=== PATIENT | female | born 1945 | race Caucasian/White ===

== ENCOUNTER 2018-11-29 05:44 | Day surgery (SDC) | payer MEDICARE, OTHER ==
[2018-11-29] MEDS ORDERED: Lactated Ringers 1,000 ML IV ONE (06:13)
[2018-11-29] MEDS ORDERED: Lactated Ringers 1,000 ML IV SCH (06:30)
[2018-11-29] MEDS ORDERED: DIPRIVAN 200 MG/20 ML IV ONE ×2 (07:19→07:51)
[2018-11-29 08:20] VITALS: O2SAT 97
--- NOTE | 2018-11-29 08:45 | OP ---
SURGERY DATE/TIME: 11/29/2018 0737 PREOPERATIVE DIAGNOSIS: History of colon polyps. POSTOPERATIVE DIAGNOSIS: Normal colon. PROCEDURE: Colonoscopy. SURGEON: Ernie Connelly M.D. ANESTHESIA: MAC by Casey Red CRNA. ESTIMATED BLOOD LOSS: None. SPECIMENS: None. DESCRIPTION OF PROCEDURE: After informed written consent was obtained, the patient was taken to the endoscopy suite. She underwent monitored anesthesia and a digital rectal exam showed normal sphincter tone and no internal lesions. The scope was inserted into the rectum and sequentially the entire colonic mucosa was traversed. The level of cecum was reached and verified with direct visualization of ileocecal valve. Upon withdrawal careful mucosal inspection revealed no obvious abnormalities or lesions. Prior to withdrawal retroflexion was performed and showed no internal lesions. The scope was removed and the patient was taken to the recovery room in good condition.
[2018-11-29 08:53] VITALS: BP 156/71; PULSE 78
== END 2018-11-29 08:50 | disposition home or self-care (01) ==
LOC: SDC 05:44
PROVIDERS: ATTEND Family Medicine
DX: Z09 Encounter for follow-up examination after completed treatment for conditions other than malignant neoplasm (principal); Z86.010 Personal history of colon polyps; Z80.0 Family history of malignant neoplasm of digestive organs; E11.9 Type 2 diabetes mellitus without complications; I10 Essential (primary) hypertension
CPT/HCPCS: 82962; 99100; J2704

== ENCOUNTER 2019-12-31 09:31 | Emergency (ER) | payer MEDICARE, OTHER ==
--- NOTE | 2019-12-31 10:04 | HP ---
DATE OF SURGERY: 12/31/2019 HISTORY OF PRESENT ILLNESS: The patient is a 74 year old with abnormal weight loss, thickening of the colon on CT scan. She had endoscopy by Dr. Connelly in the past where she had thickening of the transverse colon on CT now. Due to her abnormal weight, some epigastric pain xiphoid area a few months ago. No bloody stools. Loose stools now. Family history of father with colon cancer. No history of inflammatory bowel disease. Given abnormal thickening of colon on CT scan, she is need of follow up colonoscopy for further evaluation. PAST MEDICAL HISTORY: Hyperlipidemia. Diabetes. Arthritis. Anxiety. Depression. Hypertension. PAST SURGICAL HISTORY: Prior endoscopy in the past. Tonsillectomy. Hemorrhoidectomy. Partial hysterectomy. Cataract surgery. Colonoscopy in the past. MEDICATIONS: Atorvastatin. Actoplus Met. Meloxicam. Paroxetine. Montelukast. Benazepril. Cyanocobalamin. Aspirin. Tylenol PRN. ALLERGIES: PENICILLILN. CODEINE. FAMILY HISTORY: Colon cancer, heart disease, diabetes, lung cancer. SOCIAL HISTORY: Former smoker used to smoke a pack and a half per day but denied smoking currently or alcohol abuse. REVIEW OF SYSTEMS: Fourteen systems reviewed. No chest pain or palpitations. She did lose 28 to 30 pounds in the past few months. Other systems negative or noncontributory as above and per preadmission questionnaire. PHYSICAL EXAMINATION: GENERAL: No acute distress. HEENT: Sclerae nonicteric. NECK: No JVD. CHEST: Equal excursion, nonlabored breathing. CVS: Regular rate and rhythm. ABDOMEN: Soft. No peritoneal signs. EXTREMITIES: No significant edema. NEURO: Alert, oriented, moving extremities symmetrically. No gross motor deficits noted. RECTAL: Deferred timed to endoscopy exam. PSYCH: Appropriate mood and affect. IMPRESSION: Thickened transverse colon on CT scan as well as weight loss of 28 to 30 pounds, she is in need of follow up colonoscopy for further evaluation. Risks and benefits explained in detail including but not limited to bleeding or infection, small risk of bowel injury or perforation possibly requiring open procedure, risk of missed or nondiagnosis or incomplete exam possibly requiring barium enema, other studies or procedures, general risk of anesthesia or sedation, risk of bowel prep but not limited to, consent obtained, will proceed with outpatient colonoscopy under MAC anesthesia.
[2019-12-31 10:42] LABS: Absolute Neutrophil Ct (ANC) 5.09 (1.4-6.9); BASOPHIL % 0.1 % (0.0-0.4); Basophil (Absolute #) 0.01 (0-0.4); Eosinophil % 0.7 % (0.00-5.0); Eosinophil (Absolute #) 0.05 (0-0.5); Hematocrit 36.2 % (35-47); Hemoglobin 11.6 gm/dl (12.0-16.0); Lymphocyte (Absolute #) 1.25 (1.0-4.6); Lymphocytes % 17.1 % (24.0-44.0); Mean Corpuscular Hemoglobin 29.1 pg (26-32); Mean Platelet Volume 10.5 fl (7.5-11.0); Monocyte (Absolute #) 0.89 (0.0-1.3); Monocytes % 12.2 % (0.0-12.0); Neutrophil % 69.9 % (36.0-66.0); Platelet Count 360 K/mm3 (150-450); Red Blood Count 3.98 M/mm3 (4.1-5.4); Red Cell Distribution Width 14.7 % (11.5-14.0); White Blood Count 7.3 K/mm3 (4.0-10.5)
--- NOTE | 2019-12-31 10:43 | ERPHSYRPT ---
- History of Present Illness Source: patient, other () Patient Subjective Stated Complaint: pt to ER with complaints of fall this morning. pt states she was in the bathroom and passed out. pt found pt on the floor of the bathroom unconcious. pt states she has a headache. pt states she had liquids yesterday for a colonoscopy she had scheduled this morning. Triage Nursing Assessment: pt A&Ox4. pt in wheelchair. pt eyes PERRL. pt skin pwd. Physician History: 74 yo wf prepping for colonoscopy the last couple of days presents to ER after having syncopal episode in her bathroom 90 minutes before ER arrival. Pt had a little nausea before fall but denies vomiting/chest pain/focal weakness/fever. She hit her head and has a PARKER. Witnessed: unwitnessed Prior Episodes: single episode today Timing/Duration: other (90minutes) Precipitating Factors: unknown (Pt prepping for a colonoscopy last couple of days) Loss of Consciousness: brief (seconds) Charcter of event(s): collapsed Allergies/Adverse Reactions: Penicillins Allergy (Intermediate, Verified 12/31/19 09:51) b/p drops codeine Allergy (Mild, Verified 12/31/19 09:51) stomach upset Home Medications: Acetaminophen/Diphenhydramine [Tylenol Pm Ex-Strength Caplet] 1 each PO HS 11/14/18 [History] Atorvastatin Calcium [Lipitor] 40 mg PO DAILY 11/14/18 [History] Benazepril/Hydrochlorothiazide [Benazepril-Hctz 20-12.5 mg Tab] 1 each PO DAILY 11/14/18 [History] Cyanocobalamin (Vitamin B-12) [Neuro B-12 Forte S] 1,000 mcg IJ UD 11/14/18 [History] Meloxicam [Mobic] 15 mg PO DAILY 11/14/18 [History] Montelukast Sodium 10 mg [Singulair 10 MG] 10 mg PO DAILY 11/14/18 [History] Paroxetine HCl 20 mg [Paxil 20 MG] 20 mg PO DAILY 11/14/18 [History] Pioglitazone HCl/Metformin HCl [Actoplus Met 15 mg-850 mg Tab] 1 each PO BID 11/14/18 [History] Vitamin E 400 Units [Vitamin E 400 UNIT SOFTGEL] 400 unit PO DAILY 11/14/18 [History] Aspirin EC 81 mg [Ecotrin 81 mg] 81 mg PO DAILY 12/20/19 [History] Hx Tetanus, Diphtheria Vaccination/Date Given: Yes Hx Influenza Vaccination/Date Given: Yes Hx Pneumococcal Vaccination/Date Given: Yes Immunizations Up to Date: Yes Travel Risk - International Travel Have you traveled outside of the country in past 3 weeks: No - Coronavirus Screening Are you exhibiting any of the following symptoms?: No Close contact with a COVID-19 positive Pt in past 14-21 Days: No - Past Medical History Pertinent Past Medical History: Yes Neurological History: No Pertinent History ENT History: Glaucoma Cardiac History: Hypertension Respiratory History: Emphysema, Sleep Apnea Endocrine Medical History: Diabetes Type II Musculoskeletal History: No Pertinent History GI Medical History: GERD, Other History: No Pertinent History Psycho-Social History: No Pertinent History Female Reproductive Disorders: No Pertinent History Other Medical History: hiatal hernia. anemia - Past Surgical History Past Surgical History: Yes Neuro Surgical History: No Pertinent History Cardiac: No Pertinent History Respiratory: No Pertinent History Gastrointestinal: No Pertinent History, Hemorrhoidectomy Genitourinary: No Pertinent History Musculoskeletal: No Pertinent History Female Surgical History: Hysterectomy, Tubal Ligation, Other Other Surgical History: breast surgery left. partial hysterectomy. EYE STENTS - Social History Smoking Status: Former smoker Exposure to second hand smoke: No Drug Use: none Patient Lives Alone: No - Female History Hx Now: No - Review of Systems Constitutional: No Fever, No Chills, No Fatigue, No Lethargy, No Malaise, No Night Sweats, No Weakness, No Weight Loss Eyes: No Discharge, No Eye Pain, No Eye Redness, No Itchy, No Photophobia, No Tearing, No Vision Changes, No Double Vision, No Foreign Body Sensation Ears, Nose, & Throat: No Ear Pain, No Ear Discharge, No Hearing Changes, No Tinnitus, No Nose Pain, No Nose Congestion, No Nose Discharge, No Sinus Drainage, No Epistaxis, No Mouth Pain, No Mouth Swelling, No Loose Teeth, No Throat Pain, No Throat Swelling, No Hoarse, No Painful Swallowing Respiratory: No Cough, No Cyanosis, No Dyspnea, No Dyspnea on Exertion (LEONARDO), No Stridor, No Wheezing Cardiac: No Chest Pain, No Edema, No Palpitations, No Syncope, No Orthopnea Abdominal/Gastrointestinal: Nausea, Appetite Changes (Recent weight loss), No Abdominal Pain, No Vomiting, No Diarrhea, No Constipation, No Hematemesis, No Hematochezia, No Melena, No Dysphagia Genitourinary Symptoms: No Symptoms, No Dysuria, No Frequency, No Hematuria Musculoskeletal: No Symptoms, Neck Pain Skin: No Symptoms Neurological: No Symptoms Psychological: No Symptoms Endocrine: No Symptoms Hematologic/Lymphatic: No Symptoms Immunological/Allergic: No Symptoms Physical Exam - Nursing Vital Signs Nursing Vital Signs: Initial Vital Signs Temperature 97.5 F 12/31/19 09:43 Pulse Rate 87 12/31/19 09:43 Respiratory Rate 16 12/31/19 09:43 Blood Pressure 139/7 12/31/19 09:43 O2 Sat by Pulse Oximetry 100 12/31/19 09:43 Pain Scale Pain Intensity 0 - [place] Coma Scale Best Eye Response (Maria E): (4) open spontaneously Best Verbal Response (Maria E): (5) oriented Best Motor Response ([place]): (6) obeys commands [place] Total: 15 - Physical Exam General Appearance: no apparent distress Eye Exam: bilateral eye: normal inspection, PERRL, EOMI Ears, Nose, Throat Exam: normal ENT inspection, TMs normal, pharynx normal Neck Exam: normal inspection (Mild superior C-spine TTP) Respiratory: normal breath sounds, lungs clear, airway intact, No respiratory distress Cardiovascular: regular rate/rhythm, normal heart sounds, normal peripheral pulses Gastrointestinal: soft, normal bowel sounds, No tenderness Pelvic Exam: not done Back Exam: normal inspection, normal range of motion (No T/L-spine ttp) Extremity Exam: normal inspection, normal range of motion, pelvis stable Peripheral Pulses: carotid (R): 2+, carotid (L): 2+ Mental Status: alert, oriented x 3, cooperative, No agitated ship fastener Exam: normal hearing, normal speech, PERRL, No abnormal eye position, No abnormal gag reflex, No abnormal pupil position, No tongue deviation to R, No tongue deviation to L Coordination/Gait: normal finger to nose, normal cerebellar function Motor/Sensory: no motor deficit, no sensory deficit, no pronator drift, negative Babinski's sign DTR: bicep (R): 2+, bicep (L): 2+, knee (R): 2+, knee (L): 2+ Skin Exam: normal color, warm, dry SpO2 Interpretation: normal SpO2: 100 O2 Delivery: Room Air - Course Nursing assessment & vital signs reviewed: Yes EKG Interpreted by Me: RATE (NSR/R81/Normal Qt-Qtc/Poor R wave progression/Qwave 3-AVF) - CT Exams Head CT Interpretation: Discussed w/radiologist (Nothing acute) Cervical Spine CT Interpretation: Discussed w/radiologist (Nothing acute) Chest CT Interpretation: Discussed w/radiologist (No PE) Ordered Tests: Active Orders 24 hr Category Date Time Status EKG-ER Only STAT Care 12/31/19 10:04 Active IV Insertion STAT Care 12/31/19 10:04 Active CERVICAL SPINE WO CONTRAST [CT] Stat Exams 12/31/19 10:06 Completed CHEST WITH CONTRAST [CT] Stat Exams 12/31/19 13:49 Completed HEAD WITHOUT CONTRAST [CT] Stat Exams 12/31/19 10:06 Completed BMP Stat Lab 12/31/19 12:59 Completed CBC W DIFF Stat Lab 12/31/19 10:04 Completed CMP Stat Lab 12/31/19 10:31 Completed D-DIMER QUANTITATIVE Stat Lab 12/31/19 10:31 Completed PROTIME WITH INR Stat Lab 12/31/19 10:31 Completed PTT Stat Lab 12/31/19 10:31 Completed TROPONIN Q3H Lab 12/31/19 10:31 Completed TROPONIN Q3H Lab 12/31/19 13:15 Completed Medication Summary Generic Name Dose Route Start Last Admin Trade Name Freq PRN Reason Stop Dose Admin Lactated Ringer's 1,000 mls @ 50 mls/hr 12/31/19 15:30 Lactated Ringers IV 01/30/20 15:29 .Q20H BILLY Discontinued Medications Generic Name Dose Route Start Last Admin Trade Name Freq PRN Reason Stop Dose Admin Sodium Chloride 1,000 mls @ 999 mls/hr 12/31/19 10:58 12/31/19 12:03 Sodium Chloride 0.9% 1000 Ml IV 12/31/19 11:58 Infused .Q1H1M STA Infusion Sodium Chloride Confirm 12/31/19 11:00 Sodium Chloride 0.9% 1000 Ml Administered 12/31/19 11:01 Dose 1,000 mls @ ud .ROUTE .STK-MED ONE Sodium Chloride 1,000 mls @ 999 mls/hr 12/31/19 12:02 12/31/19 13:10 Sodium Chloride 0.9% 1000 Ml IV 12/31/19 13:02 Infused .Q1H1M STA Infusion Sodium Chloride Confirm 12/31/19 12:05 Sodium Chloride 0.9% 1000 Ml Administered 12/31/19 12:06 Dose 1,000 mls @ ud .ROUTE .STK-MED ONE Lactated Ringer's 1,000 mls @ 50 mls/hr 12/31/19 15:30 Lactated Ringers IV 01/30/20 15:29 .Q20H [facility] Lab/Rad Data: Laboratory Result Diagrams 12/31/19 10:04 12/31/19 12:59 Laboratory Results 12/31/19 12/31/19 12/31/19 Range/Units 13:15 12:59 10:31 WBC (4.0-10.5) K/mm3 RBC (4.1-5.4) M/mm3 Hgb (12.0-16.0) gm/dl Hct (35-47) % MCV (78-100) fl MCH (26-32) pg MCHC (32-36) g/dl RDW (11.5-14.0) % Plt Count (150-450) K/mm3 MPV (7.5-11.0) fl Gran % (36.0-66.0) % Eos # (Auto) (0-0.5) Absolute Lymphs (auto) (1.0-4.6) Absolute Monos (auto) (0.0-1.3) Lymphocytes % (24.0-44.0) % Monocytes % (0.0-12.0) % Eosinophils % (0.00-5.0) % Basophils % (0.0-0.4) % Absolute Granulocytes (1.4-6.9) Basophils # (0-0.4) PT (9.95-12.35) SECONDS INR (0.8-3.0) APTT (25.3-37.0) SECONDS D-Dimer (215-500) ng/mL Sodium 137 (137-145) mmol/L Potassium 3.9 D (3.5-5.1) mmol/L Chloride 107 (98-107) mmol/L Carbon Dioxide 22 (22-30) mmol/L Anion Gap 11.9 (5-15) MEQ/L BUN 14 (7-17) mg/dL Creatinine 1.12 H (0.52-1.04) mg/dL Estimated GFR 50.8 ML/MIN Glucose 90 (74-106) mg/dL Calcium 8.7 (8.4-10.2) mg/dL Total Bilirubin (0.2-1.3) mg/dL AST (14-36) U/L ALT (0-35) U/L Alkaline Phosphatase (38-126) U/L Troponin I < 0.012 < 0.012 (0.000-0.034) ng/mL Serum Total Protein (6.3-8.2) g/dL Albumin (3.5-5.0) g/dL 12/31/19 12/31/19 12/31/19 Range/Units 10:31 10:31 10:04 WBC 7.3 (4.0-10.5) K/mm3 RBC 3.98 L (4.1-5.4) M/mm3 Hgb 11.6 L (12.0-16.0) gm/dl Hct 36.2 (35-47) % MCV 91.0 (78-100) fl MCH 29.1 (26-32) pg MCHC 32.0 (32-36) g/dl RDW 14.7 H (11.5-14.0) % Plt Count 360 (150-450) K/mm3 MPV 10.5 (7.5-11.0) fl Gran % 69.9 H (36.0-66.0) % Eos # (Auto) 0.05 (0-0.5) Absolute Lymphs (auto) 1.25 (1.0-4.6) Absolute Monos (auto) 0.89 (0.0-1.3) Lymphocytes % 17.1 L (24.0-44.0) % Monocytes % 12.2 H (0.0-12.0) % Eosinophils % 0.7 (0.00-5.0) % Basophils % 0.1 (0.0-0.4) % Absolute Granulocytes 5.09 (1.4-6.9) Basophils # 0.01 (0-0.4) PT 12.3 (9.95-12.35) SECONDS INR 1.09 (0.8-3.0) APTT 32.2 (25.3-37.0) SECONDS D-Dimer 2643 H* (215-500) ng/mL Sodium 135 L (137-145) mmol/L Potassium 3.1 L (3.5-5.1) mmol/L Chloride 100 (98-107) mmol/L Carbon Dioxide 21 L (22-30) mmol/L Anion Gap 16.9 H (5-15) MEQ/L BUN 16 (7-17) mg/dL Creatinine 1.30 H (0.52-1.04) mg/dL Estimated GFR 42.8 ML/MIN Glucose 126 H (74-106) mg/dL Calcium 10.2 (8.4-10.2) mg/dL Total Bilirubin 0.90 (0.2-1.3) mg/dL AST 29 (14-36) U/L ALT 19 (0-35) U/L Alkaline Phosphatase 115 (38-126) U/L Troponin I (0.000-0.034) ng/mL Serum Total Protein 8.1 (6.3-8.2) g/dL Albumin 4.5 (3.5-5.0) g/dL - Progress Progress: unchanged Progress Note: 12/31/19 15:05 Pt stable throughout stay. Received 2L NS bolus. No chest pain/focal weakness/dyspnea throughout stay. Counseled pt/family regarding: lab results, need for follow-up, rad results - Departure Departure Disposition: Home Clinical Impression: Syncope and collapse Condition: Stable Critical Care Time: No Referrals: VIVIEN MARSHALL MD [Primary Care Provider] - Instructions: Syncope (Fainting) (DC) Additional Instructions: Follow up with your family MD Return to ER for focal weakness/chest pain/Shortness of breath
[2019-12-31 10:49] LABS: INR 1.09 (0.8-3.0); PROTIME 12.3 SECONDS (9.95-12.35)
[2019-12-31 10:51] LABS: PTT 32.2 SECONDS (25.3-37.0)
[2019-12-31 10:53] LABS: ALBUMIN 4.5 g/dL (3.5-5.0); ANION GAP 16.9 MEQ/L (5-15); BILIRUBIN,TOTAL 0.9 mg/dL (0.2-1.3); Calcium 10.2 mg/dL (8.4-10.2); Creatinine 1 1.3 mg/dL (0.52-1.04); Potassium 3.1 mmol/L (3.5-5.1); Total Protein 8.1 g/dL (6.3-8.2)
[2019-12-31] MEDS ORDERED: Sodium Chloride 0.9% 1000 ML 1,000 ML IV STA ×2 (10:58→12:02)
[2019-12-31] MEDS ORDERED: Sodium Chloride 0.9% 1000 ML 1,000 ML ONE ×2 (11:00→12:05)
--- NOTE | 2019-12-31 11:46 | XRAY ---
Exam: CT of the head without IV contrast 12/31/2019. CTDI: 53.92 mGy. Comparison: None. Indication: 74-year-old female fell, striking posterior right side of head. Technique: Non-IV contrast axial images were obtained through the brain. Reconstructed coronal and sagittal images were created and reviewed. Findings: The ventricles appear of unremarkable size and configuration. No focal mass effect or midline shift is seen. The patient's head is slightly tilted in the CT gantry. There is no evidence of acute intracranial bleed or abnormal extra-axial fluid collection. The warner matter-white matter junctions appear essentially unremarkable with only minimal evidence of chronic microvascular disease. No cortical infarct is seen. The cortical sulci appear unremarkable for the patient's age. Structures of the posterior fossa appear unremarkable. Minimal vascular calcification is seen within the distal right vertebral artery. There is also minimal calcification within the carotid siphons. There is a 4.8 mm x 3.3 mm oval-shaped soft tissue density within the scalp along the high left parietal convexity near the vertex. This may represent a small sebaceous cyst. I see no significant scalp hematoma posteriorly on the right at the site of the patient's injury. The calvarium of the skull reveals no fracture or other focal bone lesion. The visualized paranasal sinuses are essentially clear. Mastoid air cells are adequately aerated without effusion. The middle ear cavities appear grossly unremarkable. The orbits reveal no significant abnormality. Impression: 1. No acute intracranial bleed or other acute intracranial process is seen. 2. No fracture of the calvarium of the skull is seen.
--- NOTE | 2019-12-31 11:55 | XRAY ---
Exam: CT of the cervical spine without IV contrast from 12/31/2019. CTDI: 57.12 mGy Comparison: None. Indication: Patient fell, complains of neck pain. Technique: Non-IV contrast axial images were obtained through the cervical spine. Reconstructed coronal and sagittal images were created and reviewed. Findings: I see no acute cervical spine fracture, AP traumatic subluxation, or prevertebral soft tissue swelling. Some degenerative changes are seen at the preodontoid space. No focal bone destruction is seen. There is evidence of mild degenerative disc disease at C5-C6 and at least moderate degenerative disc disease at C6-C7. No cervical ribs are seen. There is moderate degenerative change of the left C5-C6 uncovertebral joint and moderate to marked degenerative change of both C6 and C7 uncovertebral joints, left greater than right. In addition, I note scattered moderate facet joint arthropathy, most pronounced at C4-C5 on the left, and at C2-C3, C3-C4, and C5-C6 on the right. No cervical canal stenosis is seen. I note some mild neural foraminal narrowing on the right at C3-C4 and C4-C5, and mild narrowing of both C5-C6 neural foramen. No abnormal cervical lymphadenopathy is seen. The thyroid gland appears grossly unremarkable. The visualized lung apices appear unremarkable. Impression: 1. No acute cervical spine fracture, AP subluxation, or prevertebral soft tissue swelling is seen. 2. Moderate degenerative changes are seen within the cervical spine, as discussed above.
[2019-12-31 13:40] LABS: ANION GAP 11.9 MEQ/L (5-15); Calcium 8.7 mg/dL (8.4-10.2); Creatinine 1 1.12 mg/dL (0.52-1.04); Potassium 3.9 mmol/L (3.5-5.1)
[2019-12-31 15:06] VITALS: BP 141/75; PULSE 102
[2019-12-31 15:08] VITALS: O2SAT 100
--- NOTE | 2019-12-31 15:09 | XRAY ---
Exam: CT of the chest with IV contrast, per PE protocol, from 12/31/2019. Total DLP: 566.45 mGy-cm Comparison: Two-view chest from 12/05/2019. Indication: 74-year-old female with chest pain, syncope, elevated d-dimer of 2643. Technique: Post-IV contrast axial images were obtained through the chest during and following 80 cc IV injection of Isovue-370 contrast material using the PE protocol. Reconstructed coronal and sagittal images were created and reviewed. Findings: The pulmonary arteries enhance well and reveal no filling defects to suggest clot/emboli. The thoracic aorta appears of normal diameter and reveals no dissection. There is a small hiatal hernia with a greater amount of herniated intraperitoneal fat along the anterior and right lateral aspects of the hiatal hernia extending into the lower posterior mediastinum. No abnormal mediastinal or perihilar lymphadenopathy is seen. The visualized thyroid gland appears unremarkable. Minimal posterior dependent atelectatic changes are seen on the lung window images. No air space infiltrates, pneumothorax, or pleural effusion is seen. Some subtle scattered bulla are noted bilaterally suggesting early emphysematous changes. No suspicious soft tissue lung nodules are seen. The visualized upper abdomen reveals no significant abnormality. The adrenal glands appear unremarkable. Small bilateral extrarenal pelvi are seen. Mild mid dorsal kyphosis and degenerative changes within the lower cervical spine and mid to lower thoracic spine are seen. Impression: 1. I see no findings to suggest acute pulmonary embolism. Nor do I see evidence of thoracic aortic aneurysm or dissection. 2. Mild hyperinflation of the lungs with subtle bullous disease within both upper lung chowdary. This suggests mild emphysematous changes. 3. Small retrocardiac hiatal hernia. I also see some herniated intraperitoneal fat about the anterior and right lateral aspect of the distal thoracic esophagus.
[2019-12-31] MEDS ORDERED: Lactated Ringers 1,000 ML IV SCH ×2 (15:30)
[2019-12-31] MEDS ORDERED: Lactated Ringers IV ONE (15:49)
[2019-12-31] MEDS ORDERED: Lactated Ringers 1,000 ML IV ONE (15:49)
[2019-12-31] MEDS ORDERED: Ketamine HCl 50 MG/ML ONE (16:07)
[2019-12-31] MEDS ORDERED: DIPRIVAN 200 MG/20 ML IV ONE (16:07)
--- NOTE | 2020-01-01 11:58 | OP ---
SURGERY DATE/TIME: 12/31/2019 1538 PREOPERATIVE DIAGNOSIS: History of transverse colon thickening on CT scan, history of weight loss. POSTOPERATIVE DIAGNOSES: 1) Small proximal colon polyp, small raised lesion versus early polyp sigmoid colon. 2) Only fair bowel prep. 3) Slight erythema, slight thickening of colon mucosa without any ky ulceration. No ky mass. PROCEDURES: 1) Colonoscopy to terminal ileum. 2) Random cold biopsies of terminal ileum. 3) Random cold biopsies of colon particularly random cold biopsy of the colon and taking additional biopsy of the transverse colon to evaluate for microscopic colitis. 4) Hot snare polypectomy proximal transverse colon polyp. 5) Hot biopsy removal small early polyp versus hyperplastic lesion removed from the sigmoid colon with hot biopsy forceps. 6) Random cold biopsy of the ileum. 7) Random cold biopsy of the colon to evaluate for microscopic ileitis or microscopic colitis. SURGEON: Dr. Colt Vences. ANESTHESIA: MAC. ESTIMATED BLOOD LOSS: Minimal. INDICATIONS: As noted above. Risks and benefits explained in detail but not limited to and consent obtained. DESCRIPTION OF PROCEDURE AND FINDINGS: The patient is taken to the endoscopy room. MAC anesthesia introduced. After official time out and no disagreement with planned procedure, digital rectal exam did not reveal any rectal masses. She did have some internal hemorrhoids. Video colonoscope inserted and passed up the tortuous sigmoid, descending, transverse and ascending colon. With external pressure the scope passed down to the cecum. Appendiceal orifice and valve well visualized. Scope passed up the terminal ileum which was grossly unremarkable but given her symptom complaints and history of bowel thickening, some random cold biopsies taken to evaluate for microscopic ileitis. The scope was then carefully withdrawn. There was a little bit of colon mucosal thickening and some random cold biopsies were taken to evaluate for microscopic colitis. There was a small polyp in the proximal transverse colon this was removed with hot snare polypectomy. There was no gross evidence of any macroscopic colitis or masses in the transverse colon. Whether this is just slight edema in the colon mucosa or thickening would account for the CT appearance or not or just nondistension of the colon. The scope slowly and carefully withdrawn. Withdrawal time was around 12 minutes, taking random cold biopsies throughout the colon. She did have a few small, minimal internal hemorrhoids. The patient tolerated the procedure well. There were no immediate complications. Findings discussed with her out in the waiting area.
== END 2019-12-31 17:25 | disposition home or self-care (01) ==
LOC: ED 09:31
DX: R55 Syncope and collapse (principal); W01.10XA Fall on same level from slipping, tripping and stumbling with subsequent striking against unspecified object, initial encounter; Y99.9 Unspecified external cause status; K63.5 Polyp of colon; R19.5 Other fecal abnormalities; R63.4 Abnormal weight loss; Z68.30 Body mass index [BMI] 30.0-30.9, adult; R10.13 Epigastric pain; K63.89 Other specified diseases of intestine; Z80.0 Family history of malignant neoplasm of digestive organs; G47.30 Sleep apnea, unspecified; F51.9 Sleep disorder not due to a substance or known physiological condition, unspecified; E11.9 Type 2 diabetes mellitus without complications; I10 Essential (primary) hypertension; E78.5 Hyperlipidemia, unspecified; F41.9 Anxiety disorder, unspecified; F32.9 Major depressive disorder, single episode, unspecified; K21.9 Gastro-esophageal reflux disease without esophagitis; Z79.899 Other long term (current) drug therapy
CPT/HCPCS: 36000; 36415; 70450; 71260; 72125; 80048; 80053; 84484; 85025; 85379; 85610; 85730; 88305; 93005; 96360; 96361; 99100; 99284; J2704

== ENCOUNTER 2020-06-27 10:28 | Emergency (ER) | payer MEDICARE, OTHER ==
[2020-06-27] MEDS ORDERED: Adacel Vial IM ONE ×2 (11:02→11:05)
[2020-06-27] MEDS ORDERED: XYLOCAINE 2% HCL 20 ML MDV ONE (11:14)
[2020-06-27] MEDS ORDERED: XYLOCAINE 2% HCL 20 ML MDV IJ ONE (11:30)
--- NOTE | 2020-06-27 11:59 | ERPHSYRPT ---
- History of Present Illness Time Seen by Provider: 06/27/20 11:01 Source: patient Exam Limitations: no limitations Patient Subjective Stated Complaint: Pt states "I stumbled and hit my head on the concrete." Triage Nursing Assessment: PT presented alert and oriented X 3, skin pwd. Pt ambulates with an upright steady gait, able to speak in full sentences pt has approx 3 cm laceration to left eye brow region. Physician History: 74 years old female presented in the ER after she tripped with a ground-level fall hitting her left forehead against the concrete with a laceration. No loss of consciousness. Denies any visual symptoms, dizziness lightheadedness before or after the fall. No chest pain palpitations or shortness of breath. Patient denies any neck pain. There was bleeding initially but stopped with applying pressure. She is unsure about tetanus status. Patient does report having issues with balance and falls in the past as well. Occurred: just prior to arrival, minutes ago Severity: mild Head Injury Location: frontal Method of Injury: fell Loss of Consciousness: no loss of consciousness Associated Symptoms: denies symptoms Allergies/Adverse Reactions: Penicillins Allergy (Intermediate, Verified 12/31/19 09:51) b/p drops codeine Allergy (Mild, Verified 12/31/19 09:51) stomach upset Home Medications: Acetaminophen/Diphenhydramine [Tylenol Pm Ex-Strength Caplet] 1 each PO HS 11/14/18 [History] Atorvastatin Calcium [Lipitor] 40 mg PO DAILY 11/14/18 [History] Benazepril/Hydrochlorothiazide [Benazepril-Hctz 20-12.5 mg Tab] 1 each PO DAILY 11/14/18 [History] Cyanocobalamin (Vitamin B-12) [Neuro B-12 Forte S] 1,000 mcg IJ UD 11/14/18 [History] Montelukast Sodium 10 mg [Singulair 10 MG] 10 mg PO DAILY 11/14/18 [History] Paroxetine HCl 20 mg [Paxil 20 MG] 20 mg PO DAILY 11/14/18 [History] Pioglitazone HCl/Metformin HCl [Actoplus Met 15 mg-850 mg Tab] 1 each PO BID 11/14/18 [History] Vitamin E 400 Units [Vitamin E 400 UNIT SOFTGEL] 400 unit PO DAILY 11/14/18 [History] Hx Tetanus, Diphtheria Vaccination/Date Given: No Hx Influenza Vaccination/Date Given: Yes Hx Pneumococcal Vaccination/Date Given: Yes Immunizations Up to Date: Yes Travel Risk - International Travel Have you traveled outside of the country in past 3 weeks: No - Coronavirus Screening Are you exhibiting any of the following symptoms?: No Close contact with a COVID-19 positive Pt in past 14-21 Days: No - Review of Systems Constitutional: No Symptoms Eyes: No Symptoms, Other (Left forehead laceration with swollen upper lid) Ears, Nose, & Throat: No Symptoms Respiratory: No Symptoms Cardiac: No Symptoms Abdominal/Gastrointestinal: No Symptoms Genitourinary Symptoms: No Symptoms Musculoskeletal: No Symptoms Skin: No Symptoms Neurological: Headache Psychological: No Symptoms Endocrine: No Symptoms Hematologic/Lymphatic: No Symptoms Immunological/Allergic: No Symptoms - Past Medical History Pertinent Past Medical History: Yes Neurological History: No Pertinent History ENT History: Glaucoma Cardiac History: Hypertension Respiratory History: Emphysema, Sleep Apnea Endocrine Medical History: Diabetes Type II Musculoskeletal History: No Pertinent History GI Medical History: GERD, Other History: No Pertinent History Psycho-Social History: No Pertinent History Female Reproductive Disorders: No Pertinent History Other Medical History: hiatal hernia. anemia - Past Surgical History Past Surgical History: Yes Neuro Surgical History: No Pertinent History Cardiac: No Pertinent History Respiratory: No Pertinent History Gastrointestinal: No Pertinent History, Hemorrhoidectomy Genitourinary: No Pertinent History Musculoskeletal: No Pertinent History Female Surgical History: Hysterectomy, Tubal Ligation, Other Other Surgical History: breast surgery left. partial hysterectomy. EYE STENTS - Social History Smoking Status: Former smoker Exposure to second hand smoke: No Drug Use: none Patient Lives Alone: No - Female History Hx Now: No - Nursing Vital Signs Nursing Vital Signs: Initial Vital Signs Temperature 98.3 F 06/27/20 10:35 Pulse Rate 80 06/27/20 10:35 Respiratory Rate 20 06/27/20 10:35 Blood Pressure 157/77 06/27/20 10:35 O2 Sat by Pulse Oximetry 99 06/27/20 10:35 Pain Scale Pain Intensity 1 - Maria E Coma Score Best Eye Response (Maria E): (4) open spontaneously Best Verbal Response ([place]): (5) oriented Best Motor Response ([place]): (6) obeys commands [place] Total: 15 - Physical Exam General Appearance: no apparent distress, alert Head Injury: swelling, tenderness (Tenderness left forehead just above the eyebrow with swelling of upper lid. Intact range of motion of eyeball. 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 Exam: normal hearing, normal speech, PERRL Coordination/Gait Exam: normal finger to nose, normal gait Motor/Sensory Exam: no motor deficit, no sensory deficit, no pronator drift, negative Babinski's sign Skin Exam: normal color SpO2 Interpretation: normal SpO2: 98 O2 Delivery: Room Air Procedures - Laceration/Wound Repair Left Frontal Wound Location: Left, forehead Wound Length (cm): 2.5 Wound's Depth, Shape: superficial, linear Wound Explored: clean Irrigated: Yes Hibiclens Prep: Yes Anesthesia: 2% Lidocaine Volume Anesthetic (ccs): 3 Wound Repaired With: sutures Suture Size/Type: 5-0 Number of Sutures: 4 Layer Closure?: Yes Ordered Tests: Active Orders 24 hr Category Date Time Status HEAD WITHOUT CONTRAST [CT] Stat Exams 06/27/20 11:01 Taken Medication Summary Discontinued Medications Generic Name Dose Route Start Last Admin Trade Name Freq PRN Reason Stop Dose Admin Diphtheria/Tetanus/Acell Pertussis 0.5 ml 06/27/20 11:02 06/27/20 11:07 Adacel Vial IM 06/27/20 11:03 0.5 ml .ONCE ONE Administration Diphtheria/Tetanus/Acell Pertussis Confirm 06/27/20 11:05 Adacel Vial Administered 06/27/20 11:06 Dose 0.5 ml IM .STK-MED ONE Lidocaine HCl Confirm 06/27/20 11:14 Xylocaine 2% Hcl 20 Ml Mdv Administered 06/27/20 11:15 Dose 4 ml .ROUTE .STK-MED ONE - Progress Progress: improved Progress Note: 06/27/20 12:02 Laceration is repaired. Tetanus is updated. She has nonfocal neuro exam. CT head is obtained which is negative. Was a clear mechanical fall, do not think needs any other work-up and stable for discharge. Discussed signs symptoms of worsening needing return to ER which she seemed understanding. Counseled pt/family regarding: diagnosis, need for follow-up, rad results - Departure Departure Disposition: Home Clinical Impression: Forehead laceration Qualifiers: Encounter type: initial encounter Qualified Code(s): S01.81XA - Laceration without foreign body of other part of head, initial encounter Fall Qualifiers: Encounter type: initial encounter Qualified Code(s): W19.XXXA - Unspecified fall, initial encounter Condition: Stable Critical Care Time: No Referrals: VIVIEN MARSHALL MD [Primary Care Provider] - Follow Up with PCP/3 days Instructions: Laceration Repair With Stitches (DC), Concussion, Adult (DC) Additional Instructions: Keep it clean. Daily dressing changes. Follow-up with primary care for reevaluation and suture removal in 5 days. Return to ER for increasing swelling redness discharge/fever chills/difficulty movements of eyeball or visual disturbance. Also return for any worsening headache, intractable vomiting, numbness tingling weakness etc.
--- NOTE | 2020-06-27 12:02 | XRAY ---
Indication: Left supraorbital contusion following fall. Multiple contiguous axial images obtained through the head without contrast. [facility] comparison: December 31, 2019. Again age-appropriate global atrophy. No acute intracranial hemorrhage, abnormal extra-axial fluid collection, or mass effect. Fourth ventricle is midline without hydrocephalus. Arambula-white matter differentiation preserved. Minimal left supraorbital soft tissue swelling. Bony calvarium intact. Visualized paranasal sinuses and mastoid air cells are clear. Impression: Left supraorbital soft tissue swelling. No underlying fracture or acute intracranial abnormalities.
[2020-06-27 12:21] VITALS: BP 127/67; PULSE 81; O2SAT 97
== END 2020-06-27 12:21 | disposition home or self-care (01) ==
LOC: ED 10:28
DX: S01.81XA Laceration without foreign body of other part of head, initial encounter (principal); W18.30XA Fall on same level, unspecified, initial encounter; Z79.899 Other long term (current) drug therapy; I10 Essential (primary) hypertension; E11.9 Type 2 diabetes mellitus without complications
CPT/HCPCS: 12011; 70450; 90471; 90715; 99284

== ENCOUNTER 2023-01-03 11:26 | Emergency (ER) | payer MEDICARE, OTHER ==
--- NOTE | 2023-01-03 11:43 | ERPHSYRPT ---
- History of Present Illness Time Seen by Provider: 01/03/23 11:42 Source: patient, family Exam Limitations: no limitations Physician History: This is a 77-year-old white female patient of Dr. Rivera who is diabetic and received an Ozempic injection on 12/21/2022. Since that time, the patient has not felt right. She describes this as having abdominal pain, vomiting and diarrhea symptoms as well as some left side chest pain and generalized weakness. Symptoms are still present but not as strong as they were soon after the injection. Currently, the patient's abdominal pain level is a 2 out of 10 and her chest pain is 0. She still feels nauseated. Patient is diabetic. She has a history of COPD, hypertension, hyperlipidemia and depression. Patient has an eye surgery scheduled in January 2023 and thought she should come in to make sure there is or was not an emergency issue. Timing/Duration: day(s) (13), improved Severity: mild Associated Symptoms: vomiting, abdominal pain, chest pain, loss of appetite, weakness Allergies/Adverse Reactions: Penicillins Allergy (Intermediate, Verified 01/03/23 11:39) b/p drops codeine Allergy (Mild, Verified 01/03/23 11:39) stomach upset Home Medications: Acetaminophen/Diphenhydramine [Tylenol Pm Ex-Strength Caplet] 1 each PO HS 11/14/18 [History] Atorvastatin Calcium [Lipitor] 40 mg PO DAILY 11/14/18 [History] Benazepril/Hydrochlorothiazide [Benazepril-Hctz 20-12.5 mg Tab] 1 each PO DAILY 11/14/18 [History] Cyanocobalamin (Vitamin B-12) [Neuro B-12 Forte S] 1,000 mcg IJ UD 11/14/18 [History] Montelukast Sodium 10 mg [Singulair 10 MG] 10 mg PO DAILY 11/14/18 [History] Paroxetine HCl 20 mg [Paxil 20 MG] 20 mg PO DAILY 11/14/18 [History] Pioglitazone HCl/Metformin HCl [Actoplus Met 15 mg-850 mg Tab] 1 each PO BID 11/14/18 [History] Vitamin E 400 Units [Vitamin E 400 UNIT SOFTGEL] 400 unit PO DAILY 06/25/19 [History] Hx Tetanus, Diphtheria Vaccination/Date Given: No Hx Influenza Vaccination/Date Given: Yes Hx Pneumococcal Vaccination/Date Given: Yes Travel Risk - International Travel Have you traveled outside of the country in past 3 weeks: No - Coronavirus Screening Are you exhibiting any of the following symptoms?: No Close contact with a COVID-19 positive Pt in past 14-21 Days: No - Review of Systems Constitutional: Weakness Eyes: No Symptoms Ears, Nose, & Throat: No Symptoms Respiratory: No Symptoms Cardiac: No Symptoms Abdominal/Gastrointestinal: Abdominal Pain, Nausea, Vomiting, Diarrhea, Appetite Changes Genitourinary Symptoms: No Symptoms Musculoskeletal: No Symptoms Skin: No Symptoms Neurological: No Symptoms Psychological: No Symptoms Endocrine: No Symptoms Hematologic/Lymphatic: No Symptoms Immunological/Allergic: No Symptoms All Other Systems: Reviewed and Negative - Past Medical History Pertinent Past Medical History: Yes Neurological History: No Pertinent History ENT History: Glaucoma Cardiac History: Hypertension Respiratory History: Emphysema, Sleep Apnea Endocrine Medical History: Diabetes Type II Musculoskeletal History: No Pertinent History GI Medical History: GERD, Other History: No Pertinent History Psycho-Social History: No Pertinent History Female Reproductive Disorders: No Pertinent History Other Medical History: hiatal hernia. anemia - Past Surgical History Past Surgical History: Yes Neuro Surgical History: No Pertinent History Cardiac: No Pertinent History Respiratory: No Pertinent History Gastrointestinal: No Pertinent History, Hemorrhoidectomy Genitourinary: No Pertinent History Musculoskeletal: No Pertinent History Female Surgical History: Hysterectomy, Tubal Ligation, Other Other Surgical History: breast surgery left. partial hysterectomy. EYE STENTS - Social History Smoking Status: Former smoker Exposure to second hand smoke: No Drug Use: none Patient Lives Alone: No - Nursing Vital Signs Nursing Vital Signs: Initial Vital Signs Temperature 98.4 F 01/03/23 11:28 Pulse Rate 92 H 01/03/23 11:28 Respiratory Rate 21 01/03/23 11:28 Blood Pressure 122/79 01/03/23 11:28 O2 Sat by Pulse Oximetry 96 01/03/23 11:28 Pain Scale Pain Intensity 2 - Physical Exam General Appearance: mild distress, alert, anxiety, obese Eye Exam: PERRL/EOMI, eyes nml inspection Ears, Nose, Throat Exam: normal ENT inspection, moist mucous membranes Neck Exam: normal inspection, non-tender, supple, full range of motion Respiratory Exam: normal breath sounds, lungs clear, airway intact, No chest tenderness, No respiratory distress Cardiovascular Exam: regular rate/rhythm, normal heart sounds, normal peripheral pulses Gastrointestinal/Abdomen Exam: soft, normal bowel sounds, tenderness (Mild diffuse), guarding (Mild diffuse to palpation) Pelvic Exam: not done Rectal Exam: not done Back Exam: normal inspection, normal range of motion, No CVA tenderness, No vertebral tenderness Extremity Exam: normal inspection, normal range of motion, pelvis stable Neurologic Exam: alert, oriented x 3, cooperative, 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 as tested, normal mood/affect, nml cerebellar function, nml station & gait, sensation nml Skin Exam: normal color, warm, dry Lymphatic Exam: No adenopathy SpO2 Interpretation: normal O2 Delivery: Room Air - Course Nursing assessment & vital signs reviewed: Yes EKG Interpreted by Me: RATE (91), Sinus Rhythm, NORMAL AXIS, NORMAL INTERVALS, NORMAL QRS, NORMAL ST-T, Other (No acute ischemic changes on today's twelve-lead EKG.) Ordered Tests: Active Orders 24 hr Category Date Time Status EKG-ER Only STAT Care 01/03/23 11:51 Active IV Insertion STAT Care 01/03/23 11:51 Active ABDOMEN AND PELVIS W/0 CONTRAS [CT] Stat Exams 01/03/23 11:51 Taken AMYLASE Stat Lab 01/03/23 12:04 Completed CBC W DIFF Stat Lab 01/03/23 12:04 Completed CMP Stat Lab 01/03/23 12:04 Completed LIPASE Stat Lab 01/03/23 12:04 Completed Lactic Acid Stat Lab 01/03/23 11:51 Completed TROPONIN Q4H Lab 01/03/23 12:04 Completed TROPONIN Q4H Lab 01/03/23 16:00 Ordered TROPONIN Q4H Lab 01/03/23 20:00 Ordered UA W/RFX UR CULTURE Stat Lab 01/03/23 13:37 Completed Medication Summary Discontinued Medications Generic Name Dose Route Start Last Admin Trade Name Freq PRN Reason Stop Dose Admin Sodium Chloride 1,000 mls @ 999 mls/hr 01/03/23 11:51 01/03/23 13:06 Sodium Chloride 0.9% 1000 Ml IV 01/03/23 12:51 Infused .Q1H1M STA Infusion Sodium Chloride Confirm 01/03/23 11:55 Sodium Chloride 0.9% 1000 Ml Administered 01/03/23 11:56 Dose 1,000 mls @ ud .ROUTE .STK-MED ONE Ondansetron HCl 4 mg 01/03/23 11:51 01/03/23 11:56 Ondansetron Hcl 4 Mg/2 Ml Vial IV 01/03/23 11:52 4 mg STAT ONE Administration Ondansetron HCl Confirm 01/03/23 11:55 Ondansetron Hcl 4 Mg/2 Ml Vial Administered 01/03/23 11:56 Dose 4 mg .ROUTE .STK-MED ONE Lab/Rad Data: Laboratory Result Diagrams 01/03/23 12:04 01/03/23 12:04 Laboratory Results 01/03/23 01/03/23 01/03/23 Range/Units 13:37 12:24 12:04 WBC (4.0-10.5) x10^3/uL RBC (4.1-5.4) x10^6/uL Hgb (12.0-16.0) g/dL Hct (35-47) % MCV (78-100) fL MCH (26-32) pg MCHC (32-36) g/dL RDW (11.5-14.0) % Plt Count (150-450) x10^3/uL MPV (7.5-11.0) fL Gran % (36.0-66.0) % Immature Gran % (Auto) (0.00-0.4) % Nucleat RBC Rel Count (0.00-0.1) % Eos # (Auto) (0-0.5) x10^3/uL Immature Gran # (Auto) (0.00-0.03) x10^3u/L Absolute Lymphs (auto) (1.0-4.6) x10^3/uL Absolute Monos (auto) (0.0-1.3) x10^3/uL Absolute Nucleated RBC (0.00-0.01) x10^3u/L Lymphocytes % (24.0-44.0) % Monocytes % (0.0-12.0) % Eosinophils % (0.00-5.0) % Basophils % (0.0-0.4) % Absolute Granulocytes (1.4-6.9) x10^3/uL Basophils # (0-0.4) x10^3/uL Sodium (137-145) mmol/L Potassium (3.5-5.1) mmol/L Chloride (98-107) mmol/L Carbon Dioxide (22-30) mmol/L Anion Gap (5-15) MEQ/L BUN (7-17) mg/dL Creatinine (0.52-1.04) mg/dL Estimated GFR ML/MIN Glucose (74-106) mg/dL Lactic Acid (0.4-2.0) Calcium (8.4-10.2) mg/dL Total Bilirubin (0.2-1.3) mg/dL AST (14-36) U/L ALT (0-35) U/L Alkaline Phosphatase (38-126) U/L Troponin I < 0.012 (0.000-0.034) ng/mL Serum Total Protein (6.3-8.2) g/dL Albumin (3.5-5.0) g/dL Amylase (30-110) U/L Lipase (23-300) U/L Urine Color Yellow (Yellow) Urine Appearance Clear (Clear) Urine pH 5.5 (4.6-8.0) Ur Specific [place] 1.015 (1.005-1.030) Urine Protein Negative (Negative) Urine Glucose (UA) Negative (Negative) mg/dL Urine Ketones Negative (Negative) Urine Blood Negative (Negative) Urine Nitrite Negative (Negative) Urine Bilirubin Negative (Negative) Urine Urobilinogen 0.2 (0.2) mg/dL Ur Leukocyte Esterase Trace A (Negative) U Hyaline Cast (Auto) NONE SEEN (0-2) /LPF Urine Microscopic RBC 0-2 (0-5) /HPF Urine Microscopic WBC 0-2 (0-5) /HPF Ur Epithelial Cells None Seen (None Seen) /HPF Urine Bacteria None Seen (None Seen) /HPF Urine Culture Reflexed NO (NO) Influenza Type A Ag NEGATIVE (NEGATIVE) Influenza Type B Ag NEGATIVE (NEGATIVE) RSV (PCR) NEGATIVE (NEGATIVE) SARS-CoV-2 (PCR) NEGATIVE (NEGATIVE) Slides for Path Review 01/03/23 01/03/23 01/03/23 Range/Units 12:04 12:04 11:51 WBC 10.9 H (4.0-10.5) x10^3/uL RBC 3.67 L (4.1-5.4) x10^6/uL Hgb 10.0 L (12.0-16.0) g/dL Hct 31.1 L (35-47) % MCV 84.7 (78-100) fL MCH 27.2 (26-32) pg MCHC 32.2 (32-36) g/dL RDW 16.6 H (11.5-14.0) % Plt Count 353 (150-450) x10^3/uL MPV 11.5 H (7.5-11.0) fL Gran % 66.0 (36.0-66.0) % Immature Gran % (Auto) 0.5 H (0.00-0.4) % Nucleat RBC Rel Count 0.0 (0.00-0.1) % Eos # (Auto) 0.14 (0-0.5) x10^3/uL Immature Gran # (Auto) 0.05 H (0.00-0.03) x10^3u/L Absolute Lymphs (auto) 1.86 (1.0-4.6) x10^3/uL Absolute Monos (auto) 1.61 H (0.0-1.3) x10^3/uL Absolute Nucleated RBC 0.00 (0.00-0.01) x10^3u/L Lymphocytes % 17.1 L (24.0-44.0) % Monocytes % 14.8 H (0.0-12.0) % Eosinophils % 1.3 (0.00-5.0) % Basophils % 0.3 (0.0-0.4) % Absolute Granulocytes 7.19 H (1.4-6.9) x10^3/uL Basophils # 0.03 (0-0.4) x10^3/uL Sodium 134 L (137-145) mmol/L Potassium 3.4 L (3.5-5.1) mmol/L Chloride 101 (98-107) mmol/L Carbon Dioxide 22 (22-30) mmol/L Anion Gap 14.1 (5-15) MEQ/L BUN 21 H (7-17) mg/dL Creatinine 1.08 H (0.52-1.04) mg/dL Estimated GFR 52.6 ML/MIN Glucose 117 H (74-106) mg/dL Lactic Acid 1.3 (0.4-2.0) Calcium 9.3 (8.4-10.2) mg/dL Total Bilirubin 1.10 (0.2-1.3) mg/dL AST 38 H (14-36) U/L ALT 18 (0-35) U/L Alkaline Phosphatase 113 (38-126) U/L Troponin I (0.000-0.034) ng/mL Serum Total Protein 7.3 (6.3-8.2) g/dL Albumin 3.5 (3.5-5.0) g/dL Amylase 59 (30-110) U/L Lipase 65 (23-300) U/L Urine Color (Yellow) Urine Appearance (Clear) Urine pH (4.6-8.0) Ur Specific [place] (1.005-1.030) Urine Protein (Negative) Urine Glucose (UA) (Negative) mg/dL Urine Ketones (Negative) Urine Blood (Negative) Urine Nitrite (Negative) Urine Bilirubin (Negative) Urine Urobilinogen (0.2) mg/dL Ur Leukocyte Esterase (Negative) U Hyaline Cast (Auto) (0-2) /LPF Urine Microscopic RBC (0-5) /HPF Urine Microscopic WBC (0-5) /HPF Ur Epithelial Cells (None Seen) /HPF Urine Bacteria (None Seen) /HPF Urine Culture Reflexed (NO) Influenza Type A Ag (NEGATIVE) Influenza Type B Ag (NEGATIVE) RSV (PCR) (NEGATIVE) SARS-CoV-2 (PCR) (NEGATIVE) Slides for Path Review YES - Progress Progress: improved Progress Note: 01/03/23 15:04 This patient's medical issue is 1 of moderate complexity. The level complexity and the work-up performed is based on review of the patient's past medical history, review of the patient's medication list, review of the patient's drug allergy list, history of present illness and physical findings on examination. This patient work-up includes placement of intravenous line, infusion of normal saline solution, twelve-lead EKG, troponin level, CBC, CMP, urinalysis study, viral swabs. In addition we ordered a CT scan of the abdomen pelvis without contrast. Counseled pt/family regarding: lab results, diagnosis, need for follow-up, rad results Medical Desision Making - Diagnostic Testing Diagnostic test were ordered, analyzed, and reviewed by me: Yes Radiological Interpretation: Reviewed by me, Teleradiologist Report - Risk of complications Low Risk: Low risk of morbidity from additional dx testing or treatment The pt has a mod risk of morbidity or mortality based on: Need for prescription drug management - Departure Departure Disposition: Home Clinical Impression: Abdominal pain, Vomiting, Medication side effect Condition: Stable Critical Care Time: No Referrals: ZAN RIVERA MD [Primary Care Provider] - Follow up/PCP as directed Additional Instructions: Drink plenty of clear liquids. Avoid fatty greasy spicy foods. Call your prescribing provider today to make further arrangements for evaluation management Prescriptions: Ondansetron ODT 4 MG [Zofran Odt 4 mg] 4 mg PO Q6H PRN PRN #10 tablet PRN Reason: Vomiting
[2023-01-03] MEDS ORDERED: Zofran 4 MG/2 ML VIAL IV ONE (11:51)
[2023-01-03] MEDS ORDERED: Sodium Chloride 0.9% 1000 ML 1,000 ML IV STA (11:51)
[2023-01-03] MEDS ORDERED: Sodium Chloride 0.9% 1000 ML 1,000 ML ONE (11:55)
[2023-01-03] MEDS ORDERED: Zofran 4 MG/2 ML VIAL ONE (11:55)
[2023-01-03 11:58] VITALS: TEMP 98.4
[2023-01-03 12:12] LABS: Absolute Neutrophil Ct (ANC) 7.19 x10^3/uL (1.4-6.9); BASOPHIL % 0.3 % (0.0-0.4); Basophil (Absolute #) 0.03 x10^3/uL (0-0.4); Eosinophil % 1.3 % (0.00-5.0); Eosinophil (Absolute #) 0.14 x10^3/uL (0-0.5); Hematocrit 31.1 % (35-47); IMMATURE GRAN # 0.05 x10^3u/L (0.00-0.03); IMMATURE GRAN % 0.5 % (0.00-0.4); Lymphocyte (Absolute #) 1.86 x10^3/uL (1.0-4.6); Lymphocytes % 17.1 % (24.0-44.0); Mean Cell Volume 84.7 fL (78-100); Mean Corpuscular Hemoglobin 27.2 pg (26-32); Mean Corpuscular Hgb Concent. 32.2 g/dL (32-36); Mean Platelet Volume 11.5 fL (7.5-11.0); Monocyte (Absolute #) 1.61 x10^3/uL (0.0-1.3); Monocytes % 14.8 % (0.0-12.0); Platelet Count 353 x10^3/uL (150-450); Red Blood Count 3.67 x10^6/uL (4.1-5.4); Red Cell Distribution Width 16.6 % (11.5-14.0); White Blood Count 10.9 x10^3/uL (4.0-10.5)
[2023-01-03 12:25] LABS: ALBUMIN 3.5 g/dL (3.5-5.0); ANION GAP 14.1 MEQ/L (5-15); BILIRUBIN,TOTAL 1.1 mg/dL (0.2-1.3); Calcium 9.3 mg/dL (8.4-10.2); Creatinine 1 1.08 mg/dL (0.52-1.04); EST GLOMERULAR FILTRATION RATE 52.6 ML/MIN; Potassium 3.4 mmol/L (3.5-5.1); Total Protein 7.3 g/dL (6.3-8.2)
[2023-01-03 12:47] LABS: Slide Review 1 YES
[2023-01-03 13:04] LABS: INFLUENZA A NEGATIVE (NEGATIVE); INFLUENZA B NEGATIVE (NEGATIVE); RESPIRATORY SYNCTIAL VIRUS NEGATIVE (NEGATIVE); SARS-CoV-2 Xpert Express NEGATIVE (NEGATIVE)
[2023-01-03 13:46] LABS: Appearance Clear (Clear); Bacteria None Seen /HPF (None Seen); Bilirubin Negative (Negative); Blood Negative (Negative); Epithelial Cells None Seen /HPF (None Seen); Glucose, Urine Negative (Negative); Hyaline Casts NONE SEEN /LPF (0-2); Ketones Negative (Negative); Leukocyte Esterase Trace (Negative); Nitrite Negative (Negative); Ph 5.5 (4.6-8.0); Protein,Urine Dip Negative (Negative); RBC 0-2 /HPF (0-5); Specific Gravity 1.015 (1.005-1.030); Urobilinogen 0.2 mg/dL (0.2); WBC 0-2 /HPF (0-5)
[2023-01-03 13:48] LABS: ADD URINE CULTURE? NO (NO)
[2023-01-03 15:25] VITALS: PULSE 97; RESP 22; O2SAT 97
[2023-01-03 15:31] VITALS: BP 120/59
--- NOTE | 2023-01-04 06:22 | XRAY ---
CLINICAL HISTORY:Generalized abdominal pain COMPARISON:None. TECHNIQUES:CT scan of the abdomen and pelvis without intravenous contrast administration. FINDINGS: The liver is of average size, regular contour and homogeneous texture with no focal lesion could be detected on a non-contrast basis. No intra hepatic biliary radical dilatation. The GB is distended and harbors small stones. No signs of inflammation. The spleen is of average size and shape with homogeneous parenchyma and no focal lesion could be noted on a non-contrast basis. Both kidneys are of normal size, shape and parenchymal thickness with no stones, back pressure changes or space occupying lesions on non-contrast basis. 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 The other retroperitoneal structures including the pancreas and adrenal glands are grossly within normal limits. No significant lymph june enlargement or ascetic fluid collection. The uterus is not visualized likely surgically removed. No adnexal solid or cystic lesion. Normal filling of the urinary bladder with no stones, masses, or diverticula. Bone window settings showed reduced ossoeus mineralization, degenerative changes of the lumbar spine and L3-L4 disc space narrowing. Lung window settings showed mild left pleural effusion and left basal pulmonary vascular congestion. A small axial hiatus hernia is noted. IMPRESSION: Cholelithiasis. 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 Small axial hiatus hernia. Electronically Signed by: Bridgette Alvarado MD. (01/03/2023 13:44:59 INSTRUMENT TESTER)
== END 2023-01-03 15:31 | disposition home or self-care (01) ==
LOC: ED 11:26
DX: R10.9 Unspecified abdominal pain (principal); T50.995A Adverse effect of other drugs, medicaments and biological substances, initial encounter; R11.2 Nausea with vomiting, unspecified; R19.7 Diarrhea, unspecified; R07.9 Chest pain, unspecified; R53.1 Weakness; E11.9 Type 2 diabetes mellitus without complications; I10 Essential (primary) hypertension; E78.5 Hyperlipidemia, unspecified; Z79.85 Long-term (current) use of injectable non-insulin antidiabetic drugs; Z79.84 Long term (current) use of oral hypoglycemic drugs; Z79.899 Other long term (current) drug therapy; Z20.828 Contact with and (suspected) exposure to other viral communicable diseases
CPT/HCPCS: 0241U; 36000; 36415; 74176; 80053; 81001; 82150; 83605; 83690; 84484; 85025; 93005; 96360; 96374; 99284; J2405

== ENCOUNTER 2023-05-03 12:21 | Observation (INO) | payer MEDICARE, OTHER ==
[2023-05-03 13:52] LABS: Absolute Neutrophil Ct (ANC) 9.96 x10^3/uL (1.4-6.9); BASOPHIL % 0.1 % (0.0-0.4); Basophil (Absolute #) 0.02 x10^3/uL (0-0.4); Eosinophil % 0.3 % (0.00-5.0); Eosinophil (Absolute #) 0.04 x10^3/uL (0-0.5); Hematocrit 32.8 % (35-47); Hemoglobin 10.5 g/dL (12.0-16.0); IMMATURE GRAN # 0.35 x10^3u/L (0.00-0.03); IMMATURE GRAN % 2.3 % (0.00-0.4); Lymphocyte (Absolute #) 3.06 x10^3/uL (1.0-4.6); Lymphocytes % 20.4 % (24.0-44.0); Mean Cell Volume 87.2 fL (78-100); Mean Corpuscular Hemoglobin 27.9 pg (26-32); Mean Platelet Volume 11.1 fL (7.5-11.0); Monocyte (Absolute #) 1.58 x10^3/uL (0.0-1.3); Monocytes % 10.5 % (0.0-12.0); Neutrophil % 66.4 % (36.0-66.0); Platelet Count 524 x10^3/uL (150-450); Red Blood Count 3.76 x10^6/uL (4.1-5.4); Red Cell Distribution Width 16.3 % (11.5-14.0)
[2023-05-03 13:59] LABS: ALBUMIN 3.5 g/dL (3.5-5.0); ANION GAP 13.5 MEQ/L (5-15); BILIRUBIN,TOTAL 1.3 mg/dL (0.2-1.3); Calcium 9.1 mg/dL (8.4-10.2); Creatinine 1 1.29 mg/dL (0.52-1.04); EST GLOMERULAR FILTRATION RATE 43.3 ML/MIN; Potassium 3.2 mmol/L (3.5-5.1); Total Protein 6.9 g/dL (6.3-8.2)
[2023-05-03] MEDS: Sodium Chloride 0.9% 1000 ML 1,000 ML IV SCH (14:12)
--- NOTE | 2023-05-03 14:24 | XRAY ---
Indication: Syncope. Right head injury. Headache. Multiple contiguous axial images obtained through the head without contrast. Comparison: June 27, 2020 Again age-appropriate global atrophy. No acute intracranial hemorrhage, abnormal extra-axial fluid collection, or mass effect. Fourth ventricle is midline without hydrocephalus. Arambula-white matter differentiation preserved. Bony calvarium intact. Visualized paranasal sinuses and mastoid air cells are clear. Impression: Continued negative CT head without contrast exam.
[2023-05-03 15:10] LABS: Slide Review 1 YES
--- NOTE | 2023-05-03 15:23 | ERPHSYRPT ---
- History of Present Illness Time Seen by Provider: 05/03/23 12:45 Source: patient Exam Limitations: no limitations Patient Subjective Stated Complaint: PT states "I got up at 530 this morning, I thought I heard a noise and I passed out and hit my face on floor. I have been chilling all morning and I have lost about 30 lbs since . I just keep losing weight. I had bronchitis last week and just finished up my z pack." Triage Nursing Assessment: Pt presented alert and oriented X 3, skin pwd. pt ambulates with a slow gait. pt able to speak in clear full sentences. pt has abrasion noted to right cheek asd right eye slightly swollen. Physician History: 77-year-old female presents to our emergency department for evaluation of syncope. Patient states that approximately 5:30 AM she got out of bed and passed out. Patient fell and hit her face. Patient reports since then she has been experiencing some chills. Patient advised that she had approximately 30 pound weight loss since December. She was treated for bronchitis last week. Patient currently feels well. No active pain. Symptoms are mild to moderate in intensity. No specific worsening or improving factors. Patient voices no other complaints or concerns at this time. Portions of this note were created with voice recognition technology. There may be grammatical, spelling, punctuation or sound alike errors Timing/Duration: today Severity: moderate Modifying Factors: Improves With: nothing Associated Symptoms: denies symptoms Allergies/Adverse Reactions: Penicillins Allergy (Intermediate, Verified 01/03/23 11:39) b/p drops codeine Allergy (Mild, Verified 01/03/23 11:39) stomach upset Home Medications: Atorvastatin Calcium [Lipitor] 40 mg PO DAILY 11/14/18 [History] Benazepril/Hydrochlorothiazide [Benazepril-Hctz 20-12.5 mg Tab] 1 each PO DAILY 11/14/18 [History] Cyanocobalamin (Vitamin B-12) [Neuro B-12 Forte S] 1,000 mcg IJ UD 11/14/18 [History] Pioglitazone HCl/Metformin HCl [Actoplus Met 15 mg-850 mg Tab] 1 each PO BID 11/14/18 [History] Vitamin E 400 Units [Vitamin E 400 UNIT SOFTGEL] 400 unit PO DAILY 11/14/18 [History] Trazodone HCl 50 mg [Desyrel 50 mg] 50 mg PO DAILY 05/03/23 [History] Hx Tetanus, Diphtheria Vaccination/Date Given: No Hx Influenza Vaccination/Date Given: Yes Hx Pneumococcal Vaccination/Date Given: Yes Immunizations Up to Date: No Travel Risk - International Travel Have you traveled outside of the country in past 3 weeks: No - Coronavirus Screening Are you exhibiting any of the following symptoms?: No Close contact with a COVID-19 positive Pt in past 14-21 Days: No - Vaccine Status Have you recieved a Covid-19 vaccination: Yes 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 - Vaccination Dates Date of 2cond Vaccination (if applicable): 2020 - Review of Systems Constitutional: No Symptoms, No Fever, No Chills Eyes: No Symptoms Ears, Nose, & Throat: No Symptoms Respiratory: No Symptoms, No Cough, No Dyspnea Cardiac: No Symptoms, No Chest Pain, No Edema, No Syncope Abdominal/Gastrointestinal: No Symptoms, No Abdominal Pain, No Nausea, No Vom iting, No Diarrhea Genitourinary Symptoms: No Symptoms, No Dysuria Musculoskeletal: No Symptoms, No Back Pain, No Neck Pain Skin: No Symptoms, No Rash Neurological: No Symptoms, No Dizziness, No Focal Weakness, No Sensory Changes Psychological: No Symptoms Endocrine: No Symptoms Hematologic/Lymphatic: No Symptoms Immunological/Allergic: No Symptoms All Other Systems: Reviewed and Negative - Past Medical History Pertinent Past Medical History: Yes Neurological History: No Pertinent History ENT History: Glaucoma Cardiac History: Hypertension Respiratory History: Emphysema, Sleep Apnea Endocrine Medical History: Diabetes Type II Musculoskeletal History: No Pertinent History GI Medical History: GERD, Other History: No Pertinent History Psycho-Social History: No Pertinent History Female Reproductive Disorders: No Pertinent History Other Medical History: hiatal hernia. anemia - Past Surgical History Past Surgical History: Yes Neuro Surgical History: No Pertinent History Cardiac: No Pertinent History Respiratory: No Pertinent History Gastrointestinal: No Pertinent History, Hemorrhoidectomy Genitourinary: No Pertinent History Musculoskeletal: No Pertinent History Female Surgical History: Hysterectomy, Tubal Ligation, Other Other Surgical History: breast surgery left. partial hysterectomy. EYE STENTS. tribeculectomy right eye - Social History Smoking Status: Former smoker Exposure to second hand smoke: No Drug Use: none Patient Lives Alone: No - Nursing Vital Signs Nursing Vital Signs: Initial Vital Signs Pulse Rate 89 05/03/23 12:39 Respiratory Rate 25 H 05/03/23 12:39 Blood Pressure 95/67 05/03/23 12:39 O2 Sat by Pulse Oximetry 98 05/03/23 12:39 Pain Scale Pain Intensity 0 - Physical Exam General Appearance: no apparent distress, alert Eye Exam: PERRL/EOMI, eyes nml inspection Ears, Nose, Throat Exam: normal ENT inspection, TMs normal, pharynx normal, marie st mucous membranes, other (Abrasion right cheek) Neck Exam: normal inspection, non-tender, supple, full range of motion Respiratory Exam: normal breath sounds, lungs clear, airway intact, No respiratory distress Cardiovascular Exam: regular rate/rhythm, normal heart sounds, normal peripheral pulses Gastrointestinal/Abdomen Exam: soft, normal bowel sounds, No tenderness, No mass Back Exam: normal inspection, normal range of motion, No CVA tenderness, No vertebral tenderness Extremity Exam: normal inspection, normal range of motion, pelvis stable Neurologic Exam: alert, oriented x 3, cooperative, normal mood/affect, nml cerebellar function, nml station & gait, sensation nml, No motor deficits Skin Exam: normal color, warm, dry, No rash Lymphatic Exam: No adenopathy SpO2 Interpretation: normal SpO2: 98 O2 Delivery: Room Air - Course Nursing assessment & vital signs reviewed: Yes - CT Exams Other CT Interpretation: Tele-radiologist Report (CT face nondepressed fracture anterior wall right maxillary sinus) Ordered Tests: Active Orders 24 hr Category Date Time Status 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 Machine Operator STAT Care 05/03/23 12:57 Active EKG-ER Only STAT Care 05/03/23 12:57 Active IV Insertion STAT Care 05/03/23 12:57 Active Pulse Oximetry (ED) STAT Care 05/03/23 12:57 Active Telemetry q4h Care 05/03/23 15:19 Active CHEST 1 VIEW (PORTABLE) Stat Exams 05/03/23 15:23 Completed FACIAL BONES WO CONTRAST [CT] Stat Exams 05/03/23 15:57 Completed HEAD WITHOUT CONTRAST [CT] Stat Exams 05/03/23 12:56 Completed CBC W DIFF Stat Lab 05/03/23 13:35 Completed CMP Stat Lab 05/03/23 13:35 Completed TROPONIN Q4H Lab 05/03/23 13:35 Completed TROPONIN Q4H Lab 05/03/23 17:00 Completed TROPONIN Q4H Lab 05/03/23 21:00 Ordered UA W/RFX UR CULTURE Stat Lab 05/03/23 15:11 Completed Transfer Order Routine Transfer 05/03/23 Ordered Medication Summary Generic Name Dose Route Start Last Admin Trade Name Bobby PRN Reason Stop Dose Admin Sodium Chloride 1,000 mls @ 50 mls/hr 05/03/23 13:00 05/03/23 14:12 Sodium Chloride 0.9% 1000 Ml IV 06/02/23 12:59 50 mls/hr .Q20H BILLY Administration Magnesium Sulfate/Dextrose 100 mls @ 100 mls/hr 05/03/23 15:30 05/03/23 16:40 Magnesium 1 Gm / 100 Ml D5w IV 05/03/23 17:29 100 mls/hr Q1H BILLY Administration Potassium Chloride 20 meq in 100 mls @ 50 mls/hr 05/03/23 15:30 05/03/23 18:22 Potassium Chloride 20 Meq In Water 100ml IV 05/03/23 19:29 50 mls/hr Q2H BILLY Administration Levofloxacin/Dextrose 500 mg in 100 mls @ 100 mls/hr 05/03/23 19:27 Levofloxacin 500mg/100ml D5w IV 05/03/23 20:26 STAT STA Lab/Rad Data: Laboratory Result Diagrams 05/03/23 13:35 05/03/23 13:35 Laboratory Results 05/03/23 05/03/23 05/03/23 Range/Units Unknown 17:00 15:11 WBC (4.0-10.5) x10^3/uL RBC (4.1-5.4) x10^6/uL Hgb (12.0-16.0) g/dL Hct (35-47) % MCV (78-100) fL MCH (26-32) pg MCHC (32-36) g/dL RDW (11.5-14.0) % Plt Count (150-450) x10^3/uL MPV (7.5-11.0) fL Gran % (36.0-66.0) % Immature Gran % (Auto) (0.00-0.4) % Nucleat RBC Rel Count (0.00-0.1) % Eos # (Auto) (0-0.5) x10^3/uL Immature Gran # (Auto) (0.00-0.03) x10^3u/L Absolute Lymphs (auto) (1.0-4.6) x10^3/uL Absolute Monos (auto) (0.0-1.3) x10^3/uL Absolute Nucleated RBC (0.00-0.01) x10^3u/L Lymphocytes % (24.0-44.0) % Monocytes % (0.0-12.0) % Eosinophils % (0.00-5.0) % Basophils % (0.0-0.4) % Absolute Granulocytes (1.4-6.9) x10^3/uL Basophils # (0-0.4) x10^3/uL Sodium (137-145) mmol/L Potassium (3.5-5.1) mmol/L Chloride (98-107) mmol/L Carbon Dioxide (22-30) mmol/L Anion Gap (5-15) MEQ/L BUN (7-17) mg/dL Creatinine (0.52-1.04) mg/dL Estimated GFR ML/MIN Glucose (74-106) mg/dL Calcium (8.4-10.2) mg/dL Total Bilirubin (0.2-1.3) mg/dL AST (14-36) U/L ALT (0-35) U/L Alkaline Phosphatase (38-126) U/L Troponin I < 0.012 (0.000-0.034) ng/mL Serum Total Protein (6.3-8.2) g/dL Albumin (3.5-5.0) g/dL Urine Color Yellow (Yellow) Urine Appearance Clear (Clear) Urine pH 5.5 (4.6-8.0) Ur Specific [place] 1.010 (1.005-1.030) Urine Protein Negative (Negative) Urine Glucose (UA) Negative (Negative) mg/dL Urine Ketones Trace A (Negative) Urine Blood Negative (Negative) Urine Nitrite Negative (Negative) Urine Bilirubin Negative (Negative) Urine Urobilinogen 0.2 (0.2) mg/dL Ur Leukocyte Esterase Trace A (Negative) U Hyaline Cast (Auto) NONE SEEN (0-2) /LPF Urine Microscopic RBC 0-2 (0-5) /HPF Urine Microscopic WBC 6-10 A (0-5) /HPF Ur Epithelial Cells None Seen (None Seen) /HPF Urine Bacteria None Seen (None Seen) /HPF Urine Culture Reflexed NO (NO) Influenza Type A Ag NEGATIVE (NEGATIVE) Influenza Type B Ag NEGATIVE (NEGATIVE) RSV (PCR) NEGATIVE (NEGATIVE) SARS-CoV-2 (PCR) NEGATIVE (NEGATIVE) Slides for Path Review 05/03/23 05/03/23 05/03/23 Range/Units 13:35 13:35 13:35 WBC 15.0 H (4.0-10.5) x10^3/uL RBC 3.76 L (4.1-5.4) x10^6/uL Hgb 10.5 L (12.0-16.0) g/dL Hct 32.8 L (35-47) % MCV 87.2 (78-100) fL MCH 27.9 (26-32) pg MCHC 32.0 (32-36) g/dL RDW 16.3 H (11.5-14.0) % Plt Count 524 H (150-450) x10^3/uL MPV 11.1 H (7.5-11.0) fL Gran % 66.4 H (36.0-66.0) % Immature Gran % (Auto) 2.3 H (0.00-0.4) % Nucleat RBC Rel Count 0.0 (0.00-0.1) % Eos # (Auto) 0.04 (0-0.5) x10^3/uL Immature Gran # (Auto) 0.35 H (0.00-0.03) x10^3u/L Absolute Lymphs (auto) 3.06 (1.0-4.6) x10^3/uL Absolute Monos (auto) 1.58 H (0.0-1.3) x10^3/uL Absolute Nucleated RBC 0.00 (0.00-0.01) x10^3u/L Lymphocytes % 20.4 L (24.0-44.0) % Monocytes % 10.5 (0.0-12.0) % Eosinophils % 0.3 (0.00-5.0) % Basophils % 0.1 (0.0-0.4) % Absolute Granulocytes 9.96 H (1.4-6.9) x10^3/uL Basophils # 0.02 (0-0.4) x10^3/uL Sodium 131 L (137-145) mmol/L Potassium 3.2 L (3.5-5.1) mmol/L Chloride 100 (98-107) mmol/L Carbon Dioxide 21 L (22-30) mmol/L Anion Gap 13.5 (5-15) MEQ/L BUN 35 H (7-17) mg/dL Creatinine 1.29 H (0.52-1.04) mg/dL Estimated GFR 43.3 ML/MIN Glucose 129 H (74-106) mg/dL Calcium 9.1 (8.4-10.2) mg/dL Total Bilirubin 1.30 (0.2-1.3) mg/dL AST 27 (14-36) U/L ALT 16 (0-35) U/L Alkaline Phosphatase 67 (38-126) U/L Troponin I < 0.012 (0.000-0.034) ng/mL Serum Total Protein 6.9 (6.3-8.2) g/dL Albumin 3.5 (3.5-5.0) g/dL Urine Color (Yellow) Urine Appearance (Clear) Urine pH (4.6-8.0) Ur Specific [place] (1.005-1.030) Urine Protein (Negative) Urine Glucose (UA) (Negative) mg/dL Urine Ketones (Negative) Urine Blood (Negative) Urine Nitrite (Negative) Urine Bilirubin (Negative) Urine Urobilinogen (0.2) mg/dL Ur Leukocyte Esterase (Negative) U Hyaline Cast (Auto) (0-2) /LPF Urine Microscopic RBC (0-5) /HPF Urine Microscopic WBC (0-5) /HPF Ur Epithelial Cells (None Seen) /HPF Urine Bacteria (None Seen) /HPF Urine Culture Reflexed (NO) Influenza Type A Ag (NEGATIVE) Influenza Type B Ag (NEGATIVE) RSV (PCR) (NEGATIVE) SARS-CoV-2 (PCR) (NEGATIVE) Slides for Path Review YES - Progress Progress: improved Progress Note: Case discussed with facial surgeon from who feels there is no indication for transfer. Since patient's fracture is nondisplaced nondepressed there is nothing to do. No antibiotics. however if patient wishes to follow-up as an outpatient patient may call [phone] for a follow-up appointment 05/03/23 18:48 77-year-old female presents to our ED after syncopal episode. Physical exam reveals swelling to her right cheek. Neurologic exam within normal limits. Workup reveals leukocytosis of 15,000. Urinalysis reveals urinary tract infection. Patient has a normocytic anemia at 10.5. She is hyponatremic at 131. Potassium 3.2. Patient received IV potassium and IV magnesium. Patient appears to be dehydrated. BUN/creatinine is [address] head negative. No acute intracranial process. CT facial bones reveals nondisplaced right maxillary wall fracture. Per face surgeon no indication for active management. Supportive care only. Above is the surgeons contact number for follow-up clinic appointment. Plan of care discussed with patient. She agrees to admission at [facility] for further evaluation and treatment. Portions of this note were created with voice recognition technology. There may be grammatical, spelling, punctuation or sound alike errors Complexity problem addressed is moderate acute complicated. No critical care time Complexity of data reviewed and analyzed is extensive test ordered test reviewed. Results analyzed. Management discussed with hospitalist accepts admission to observation. Management also discussed with patient's surgeon from . Risk of complication and or risk of morbidity/mortality of patient management is high. Patient requires hospitalization for further evaluation and treatment. Vital stable. Time spent to discharge patient is approximately 15 minutes. Plan of care established for shared decision making. Portions of this note were created with voice recognition technology. There may be grammatical, spelling, punctuation or sound alike errors 05/03/23 19:32 Counseled pt/family regarding: lab results, diagnosis, rad results - Departure Departure Disposition: Observation Clinical Impression: Leukocytosis, Normocytic anemia, Hyponatremia, Hypokalemia, Syncope, Acute renal injury, Maxillary sinus fracture, UTI (urinary tract infection) Condition: Stable Critical Care Time: No Referrals: ZAN RIVERA MD [Primary Care Provider] - Follow up/PCP as directed
[2023-05-03 15:29] LABS: Appearance Clear (Clear); Bacteria None Seen /HPF (None Seen); Bilirubin Negative (Negative); Blood Negative (Negative); Epithelial Cells None Seen /HPF (None Seen); Glucose, Urine Negative (Negative); Hyaline Casts NONE SEEN /LPF (0-2); Ketones Trace (Negative); Leukocyte Esterase Trace (Negative); Nitrite Negative (Negative); Ph 5.5 (4.6-8.0); Protein,Urine Dip Negative (Negative); RBC 0-2 /HPF (0-5); Urobilinogen 0.2 mg/dL (0.2)
[2023-05-03 15:30] LABS: ADD URINE CULTURE? NO (NO)
--- NOTE | 2023-05-03 15:52 | XRAY ---
Indication: Short of breath. Comparison: December 05, 2019 Portable chest demonstrates new hazy left base interstitial opacities with tiny effusion. Remaining heart and right lung unremarkable. Bony thorax intact again with osteopenia and minimal degenerative changes.
[2023-05-03] MEDS: Magnesium 1 Gm / 100 Ml D5W*** 100 ML IV SCH ×2 (15:59→16:40)
[2023-05-03] MEDS: POTASSIUM CHLORIDE 20 mEq IN WATER 100ML 20 MEQ/100 ML BAG IV SCH ×2 (15:59→18:22)
[2023-05-03 16:07] LABS: INFLUENZA A NEGATIVE (NEGATIVE); INFLUENZA B NEGATIVE (NEGATIVE); RESPIRATORY SYNCTIAL VIRUS NEGATIVE (NEGATIVE); SARS-CoV-2 Xpert Express NEGATIVE (NEGATIVE)
--- NOTE | 2023-05-03 16:47 | XRAY ---
Indication: Fracture. Status post fall. Multiple contiguous axial images obtained through the facial bones. Sagittal and coronal reformatted images obtained. Minimal right mandibular/facial soft tissue swelling with nondepressed fracture anterior wall right maxillary sinus. No other acute fracture, suspicious bony lesions, or radiopaque foreign body. Orbits including roof, sharpe, and floors intact. Paranasal sinuses and nasal passages are clear. Minimal nasal septal deviation to the right. Visualized noncontrasted soft tissues are unremarkable. Patient is edentulous with dentures in situ. Impression: Nondepressed fracture anterior wall right maxillary sinus. Incidental findings as above.
[2023-05-03] MEDS ORDERED: Levofloxacin 500MG/100ML D5W 500 MG/100 ML BAG IV STA (19:27)
[2023-05-03] MEDS ORDERED: HUMALOG SQ PRN (21:20)
[2023-05-03] MEDS ORDERED: TYLENOL 325 MG PO PRN (21:47)
[2023-05-03] MEDS ORDERED: Zofran 4 MG/2 ML VIAL IV PRN (21:47)
[2023-05-03] MEDS ORDERED: PIOGLITAZONE HCL PO SCH (22:00)
[2023-05-03] MEDS ORDERED: GLYCERIN OP SCH (22:00)
[2023-05-03] MEDS ORDERED: [UNRECOGNIZED DRUG - OTHER] PO SCH (22:00)
[2023-05-03] MEDS ORDERED: CARBOXYMETHYLCELLULOS OP SCH (22:00)
[2023-05-03] MEDS ORDERED: [UNRECOGNIZED DRUG - OTHER] OP SCH (22:00)
[2023-05-03] MEDS ORDERED: LATANOPROSTENE BUNOD OP SCH (22:00)
[2023-05-03] MEDS ORDERED: METFORMIN HCL PO SCH (22:00)
[2023-05-03] MEDS ORDERED: Levofloxacin 500MG/100ML D5W 500 MG/100 ML BAG IV ONE (22:46)
[2023-05-03] MEDS: HEPARIN 5000 UNITS/0.5 ML (HIGH RISK MED) SQ SCH (22:59)
[2023-05-03] MEDS: DESYREL 50 MG PO SCH (22:59)
[2023-05-03] MEDS: Pepcid 20 MG PO SCH (22:59)
--- NOTE | 2023-05-03 23:03 | PCM.HP ---
History of Present Illness - Chief Complaint Chief Complaint: Syncope, UTI Date: 05/03/23 History of Present Illness: is a 77 year old female who presents with a syncopal episode and facial trauma after waking up at 530 this morning when she thought she heard a noise (she thought she heard her coughing). She then had loss of consciousness and hit her face on floor. The patient does state that she has had previous syncopal episodes over the past several years (the last episode was a couple of years ago) which were positional and attributed to orthostasis and vasovagal events. The patient had pain in her right cheek. She denies any pain elsewhere on her body. She has not had any subsequent new/acute vision changes, dizziness, or chest pain. She denies any new numbness/weakness. The patient does state that she has had a 30 pound weight loss which was initially intentional, with a single dose of Ozempic being administered in December, but subsequently unintentional; she endorses profound postprandial nausea which has been persistent. In fact, she continues to eat less in terms of portions, but furthermore she only eats one meal daily. The patient also has recently been treated for a bronchitis about a week ago. In the ED, the patient was found to have a non-displaced/non-depressed right maxillary fracture with telephone consultation with Plastic Surgery liaison inspection laboratory assistant (Dr. Swenson), and the recommendation was for outpatient follow up. - Review of Systems Constitutional: No Symptoms Eyes: No Symptoms Ears, Nose, & Throat: No Symptoms, Other (right cheek pain) Respiratory: No Symptoms Cardiac: No Symptoms Abdominal/Gastrointestinal: No Symptoms Genitourinary Symptoms: No Symptoms Musculoskeletal: No Symptoms Skin: No Symptoms Neurological: No Symptoms Psychological: No Symptoms Endocrine: No Symptoms Hematologic/Lymphatic: No Symptoms Immunological/Allergic: No Symptoms All Other Systems: Reviewed and Negative Medications & Allergies Home Medications: Home Medication List Atorvastatin Calcium [Lipitor] 40 mg PO DAILY 11/14/18 [History Confirmed 05/03/23] Benazepril/Hydrochlorothiazide [Benazepril-Hctz 20-12.5 mg Tab] 1 each PO DAILY 11/14/18 [History Confirmed 05/03/23] Cyanocobalamin (Vitamin B-12) [Neuro B-12 Forte S] 1,000 mcg IJ UD 11/14/18 [History Confirmed 05/03/23] Pioglitazone HCl/Metformin HCl [Actoplus Met 15 mg-850 mg Tab] 1 each PO BID 11/14/18 [History Confirmed 05/03/23] Vitamin E 400 Units [Vitamin E 400 UNIT SOFTGEL] 400 unit PO DAILY 11/14/18 [History Confirmed 05/03/23] Aspirin EC 81 mg [Ecotrin 81 mg] 81 mg PO DAILY #0 12/31/19 [Rx Confirmed 05/03/23] Carboxymethylcellulos/Glycerin [Refresh Optive Eye Drops] 5 ml OP BID 05/03/23 [History Confirmed 05/03/23] Dorzolamide HCl/Timolol Maleat [Dorzolamide-Timolol Eye Drops] 1 drp OP BID 05/03/23 [History Confirmed 05/03/23] Latanoprostene Bunod [Vyzulta] 1 drp OP HS 05/03/23 [History Confirmed 05/03/23] Potassium Chloride 10 meq PO DAILY 05/03/23 [History Confirmed 05/03/23] Trazodone HCl 50 mg [Desyrel 50 mg] 50 mg PO HS 05/03/23 [History Confirmed 05/03/23] Allergies/Adverse Reactions: Allergies Allergy/AdvReac Type Severity Reaction Status Date / Time Penicillins Allergy Severe b/p drops Verified 05/03/23 20:42 codeine Allergy Mild stomach Verified 01/03/23 11:39 upset - Past Medical History Past Medical History: Yes Neurological History: No Pertinent History ENT History: Glaucoma Cardiac History: Hypertension Respiratory History: Emphysema, Sleep Apnea Endocrine Medical History: Diabetes Type II Musculoskelatal History: No Pertinent History GI Medical History: GERD, Other History: No Pertinent History Pyscho-Social History: No Pertinent History Reproductive Disorders: No Pertinent History Comment: hiatal hernia. anemia - Past Surgical History Past Surgical History: Yes Neuro Surgical History: No Pertinent History Cardiac History: No Pertinent History Respiratory Surgery: No Pertinent History GI Surgical History: No Pertinent History, Hemorrhoidectomy Genitourinary Surgical Hx: No Pertinent History Musculskeletal Surgical Hx: No Pertinent History Female Surgical History: Hysterectomy, Tubal Ligation, Other Other Surgical History: breast surgery left. partial hysterectomy. EYE STENTS. tribeculectomy right eye - Social History Smoking Status: Former smoker Exposure to second hand smoke: No Alcohol: None Drug Use: none - Physical Exam Vital Signs: Vital Signs - 24 hr Temp Pulse Resp BP BP Pulse Ox 05/03/23 20:58 99.0 F 89 18 110/54 98 05/03/23 20:10 96 H 20 99/56 96 05/03/23 20:00 99 H 28 H 84/56 97 05/03/23 19:45 98 H 24 110/64 97 05/03/23 19:36 98 05/03/23 19:31 95 H 20 108/62 99 05/03/23 19:15 102 H 17 113/64 99 05/03/23 19:00 104 H 17 114/57 99 05/03/23 18:45 110 H 23 146/73 99 05/03/23 18:31 113 H 21 127/72 98 05/03/23 18:15 107 H 23 83/48 99 05/03/23 18:06 89 15 103/59 96 05/03/23 16:15 110/64 05/03/23 16:00 96 H 26 H 109/58 95 05/03/23 15:45 94 H 19 99/53 97 05/03/23 15:30 90 15 105/57 97 05/03/23 15:15 92 H 19 99/55 98 05/03/23 15:00 91 H 14 101/60 98 05/03/23 14:45 94 H 15 101/51 96 05/03/23 14:40 90 15 101/51 94 L 05/03/23 14:06 95 05/03/23 13:30 90 18 121/47 95 05/03/23 13:15 86 17 99/60 93 L 05/03/23 13:00 85 23 93/51 99 05/03/23 12:45 84 18 99/52 99 05/03/23 12:40 98.6 F 95 H 22 95/67 99 05/03/23 12:39 89 25 H 95/67 98 General Appearance: no apparent distress, alert Neurologic Exam: alert, oriented x 3, cooperative, can filling and closing machine tender II-XII nml as tested, normal mood/affect Eye Exam: PERRL/EOMI, eyes nml inspection Ears, Nose, Throat Exam: other (right cheek ecchymosis noted) Neck Exam: normal inspection, non-tender, supple, full range of motion Respiratory Exam: normal breath sounds, lungs clear Cardiovascular Exam: regular rate/rhythm, normal heart sounds Gastrointestinal/Abdomen Exam: soft, normal bowel sounds Back Exam: normal range of motion Extremity Exam: normal inspection, normal range of motion Skin Exam: normal color Results - Labs Lab/Micro Results: Lab Results-Last 24 Hours 05/03/23 05/03/23 05/03/23 Range/Units 13:35 13:35 13:35 WBC 15.0 H (4.0-10.5) x10^3/uL RBC 3.76 L (4.1-5.4) x10^6/uL Hgb 10.5 L (12.0-16.0) g/dL Hct 32.8 L (35-47) % MCV 87.2 (78-100) fL MCH 27.9 (26-32) pg MCHC 32.0 (32-36) g/dL RDW 16.3 H (11.5-14.0) % Plt Count 524 H (150-450) x10^3/uL MPV 11.1 H (7.5-11.0) fL Gran % 66.4 H (36.0-66.0) % Immature Gran % (Auto) 2.3 H (0.00-0.4) % Nucleat RBC Rel Count 0.0 (0.00-0.1) % Eos # (Auto) 0.04 (0-0.5) x10^3/uL Immature Gran # (Auto) 0.35 H (0.00-0.03) x10^3u/L Absolute Lymphs (auto) 3.06 (1.0-4.6) x10^3/uL Absolute Monos (auto) 1.58 H (0.0-1.3) x10^3/uL Absolute Nucleated RBC 0.00 (0.00-0.01) x10^3u/L Lymphocytes % 20.4 L (24.0-44.0) % Monocytes % 10.5 (0.0-12.0) % Eosinophils % 0.3 (0.00-5.0) % Basophils % 0.1 (0.0-0.4) % Absolute Granulocytes 9.96 H (1.4-6.9) x10^3/uL Basophils # 0.02 (0-0.4) x10^3/uL Sodium 131 L (137-145) mmol/L Potassium 3.2 L (3.5-5.1) mmol/L Chloride 100 (98-107) mmol/L Carbon Dioxide 21 L (22-30) mmol/L Anion Gap 13.5 (5-15) MEQ/L BUN 35 H (7-17) mg/dL Creatinine 1.29 H (0.52-1.04) mg/dL Estimated GFR 43.3 ML/MIN Glucose 129 H (74-106) mg/dL POC Glucometer (74 to 106) mg/dL Calcium 9.1 (8.4-10.2) mg/dL Total Bilirubin 1.30 (0.2-1.3) mg/dL AST 27 (14-36) U/L ALT 16 (0-35) U/L Alkaline Phosphatase 67 (38-126) U/L Troponin I < 0.012 (0.000-0.034) ng/mL Serum Total Protein 6.9 (6.3-8.2) g/dL Albumin 3.5 (3.5-5.0) g/dL Urine Color (Yellow) Urine Appearance (Clear) Urine pH (4.6-8.0) Ur Specific Branch (1.005-1.030) Urine Protein (Negative) Urine Glucose (UA) (Negative) mg/dL Urine Ketones (Negative) Urine Blood (Negative) Urine Nitrite (Negative) Urine Bilirubin (Negative) Urine Urobilinogen (0.2) mg/dL Ur Leukocyte Esterase (Negative) U Hyaline Cast (Auto) (0-2) /LPF Urine Microscopic RBC (0-5) /HPF Urine Microscopic WBC (0-5) /HPF Ur Epithelial Cells (None Seen) /HPF Urine Bacteria (None Seen) /HPF Urine Culture Reflexed (NO) Influenza Type A Ag (NEGATIVE) Influenza Type B Ag (NEGATIVE) RSV (PCR) (NEGATIVE) SARS-CoV-2 (PCR) (NEGATIVE) Slides for Path Review YES 05/03/23 05/03/23 05/03/23 Range/Units 15:11 17:00 20:53 WBC (4.0-10.5) x10^3/uL RBC (4.1-5.4) x10^6/uL Hgb (12.0-16.0) g/dL Hct (35-47) % MCV (78-100) fL MCH (26-32) pg MCHC (32-36) g/dL RDW (11.5-14.0) % Plt Count (150-450) x10^3/uL MPV (7.5-11.0) fL Gran % (36.0-66.0) % Immature Gran % (Auto) (0.00-0.4) % Nucleat RBC Rel Count (0.00-0.1) % Eos # (Auto) (0-0.5) x10^3/uL Immature Gran # (Auto) (0.00-0.03) x10^3u/L Absolute Lymphs (auto) (1.0-4.6) x10^3/uL Absolute Monos (auto) (0.0-1.3) x10^3/uL Absolute Nucleated RBC (0.00-0.01) x10^3u/L Lymphocytes % (24.0-44.0) % Monocytes % (0.0-12.0) % Eosinophils % (0.00-5.0) % Basophils % (0.0-0.4) % Absolute Granulocytes (1.4-6.9) x10^3/uL Basophils # (0-0.4) x10^3/uL Sodium (137-145) mmol/L Potassium (3.5-5.1) mmol/L Chloride (98-107) mmol/L Carbon Dioxide (22-30) mmol/L Anion Gap (5-15) MEQ/L BUN (7-17) mg/dL Creatinine (0.52-1.04) mg/dL Estimated GFR ML/MIN Glucose (74-106) mg/dL POC Glucometer 109 H (74 to 106) mg/dL Calcium (8.4-10.2) mg/dL Total Bilirubin (0.2-1.3) mg/dL AST (14-36) U/L ALT (0-35) U/L Alkaline Phosphatase (38-126) U/L Troponin I < 0.012 (0.000-0.034) ng/mL Serum Total Protein (6.3-8.2) g/dL Albumin (3.5-5.0) g/dL Urine Color Yellow (Yellow) Urine Appearance Clear (Clear) Urine pH 5.5 (4.6-8.0) Ur Specific Branch 1.010 (1.005-1.030) Urine Protein Negative (Negative) Urine Glucose (UA) Negative (Negative) mg/dL Urine Ketones Trace A (Negative) Urine Blood Negative (Negative) Urine Nitrite Negative (Negative) Urine Bilirubin Negative (Negative) Urine Urobilinogen 0.2 (0.2) mg/dL Ur Leukocyte Esterase Trace A (Negative) U Hyaline Cast (Auto) NONE SEEN (0-2) /LPF Urine Microscopic RBC 0-2 (0-5) /HPF Urine Microscopic WBC 6-10 A (0-5) /HPF Ur Epithelial Cells None Seen (None Seen) /HPF Urine Bacteria None Seen (None Seen) /HPF Urine Culture Reflexed NO (NO) Influenza Type A Ag (NEGATIVE) Influenza Type B Ag (NEGATIVE) RSV (PCR) (NEGATIVE) SARS-CoV-2 (PCR) (NEGATIVE) Slides for Path Review 05/03/23 05/03/23 Range/Units 20:56 Unknown WBC (4.0-10.5) x10^3/uL RBC (4.1-5.4) x10^6/uL Hgb (12.0-16.0) g/dL Hct (35-47) % MCV (78-100) fL MCH (26-32) pg MCHC (32-36) g/dL RDW (11.5-14.0) % Plt Count (150-450) x10^3/uL MPV (7.5-11.0) fL Gran % (36.0-66.0) % Immature Gran % (Auto) (0.00-0.4) % Nucleat RBC Rel Count (0.00-0.1) % Eos # (Auto) (0-0.5) x10^3/uL Immature Gran # (Auto) (0.00-0.03) x10^3u/L Absolute Lymphs (auto) (1.0-4.6) x10^3/uL Absolute Monos (auto) (0.0-1.3) x10^3/uL Absolute Nucleated RBC (0.00-0.01) x10^3u/L Lymphocytes % (24.0-44.0) % Monocytes % (0.0-12.0) % Eosinophils % (0.00-5.0) % Basophils % (0.0-0.4) % Absolute Granulocytes (1.4-6.9) x10^3/uL Basophils # (0-0.4) x10^3/uL Sodium (137-145) mmol/L Potassium (3.5-5.1) mmol/L Chloride (98-107) mmol/L Carbon Dioxide (22-30) mmol/L Anion Gap (5-15) MEQ/L BUN (7-17) mg/dL Creatinine (0.52-1.04) mg/dL Estimated GFR ML/MIN Glucose (74-106) mg/dL POC Glucometer (74 to 106) mg/dL Calcium (8.4-10.2) mg/dL Total Bilirubin (0.2-1.3) mg/dL AST (14-36) U/L ALT (0-35) U/L Alkaline Phosphatase (38-126) U/L Troponin I < 0.012 (0.000-0.034) ng/mL Serum Total Protein (6.3-8.2) g/dL Albumin (3.5-5.0) g/dL Urine Color (Yellow) Urine Appearance (Clear) Urine pH (4.6-8.0) Ur Specific Branch (1.005-1.030) Urine Protein (Negative) Urine Glucose (UA) (Negative) mg/dL Urine Ketones (Negative) Urine Blood (Negative) Urine Nitrite (Negative) Urine Bilirubin (Negative) Urine Urobilinogen (0.2) mg/dL Ur Leukocyte Esterase (Negative) U Hyaline Cast (Auto) (0-2) /LPF Urine Microscopic RBC (0-5) /HPF Urine Microscopic WBC (0-5) /HPF Ur Epithelial Cells (None Seen) /HPF Urine Bacteria (None Seen) /HPF Urine Culture Reflexed (NO) Influenza Type A Ag NEGATIVE (NEGATIVE) Influenza Type B Ag NEGATIVE (NEGATIVE) RSV (PCR) NEGATIVE (NEGATIVE) SARS-CoV-2 (PCR) NEGATIVE (NEGATIVE) Slides for Path Review Accuchecks Date 05/03/23 Time 21:00 - Radiology Impressions Radiology Exams & Impressions: Radiology Procedures Category Date Time Status CAROTID BILATERAL [US] Routine Exams 05/03/23 21:45 Ordered CHEST 1 VIEW (PORTABLE) Stat Exams 05/03/23 15:23 Completed ECHO W/2D AND DOPPLER [US] Routine Exams 05/03/23 21:45 Ordered FACIAL BONES WO CONTRAST [CT] Stat Exams 05/03/23 15:57 Completed HEAD WITHOUT CONTRAST [CT] Stat Exams 05/03/23 12:56 Completed Assessment/Plan (1) Syncope and collapse Current Visit: No Status: Acute Assessment & Plan: Possibly orthostatic with syncope precipitated after getting up from supine position. Serial troponins on tele. ECHO and carotid US in AM. IV fluids. Check orthostatics in AM. Possible component of dehydration. Also the patient being on an oral hypoglycemic agent and only having one meal daily is concerning for potential iatrogenic hypglycemia. Follow sugars. Code(s): R55 - SYNCOPE AND COLLAPSE (2) Hypokalemia Current Visit: Yes Status: Acute Assessment & Plan: Replete. Check mag. Code(s): E87.6 - HYPOKALEMIA (3) Maxillary sinus fracture Current Visit: Yes Status: Acute Assessment & Plan: Can follow up with Dr. Swenson as outpatient. Requested ST eval to determine if there needs to be dietary consistency changes based on swallowing pattern. Analgesia with Tylenol for now (patient has a codeine intolerance with that medication causing an "upset stomach"). Code(s): S02.401A - MAXILLARY FRACTURE, UNSPECIFIED SIDE, INIT (4) UTI (urinary tract infection) Current Visit: Yes Status: Acute Assessment & Plan: Antibiotics. Follow culture. Probiotic. Code(s): N39.0 - URINARY TRACT INFECTION, SITE NOT SPECIFIED (5) Nausea Current Visit: Yes Status: Acute Assessment & Plan: Postprandial nausea and unintentional weight loss will require outpatient workup with PCP. Will check TSH. May need to consider gastric emptying study to rule out diabetic gastroparesis. Code(s): R11.0 - NAUSEA Telemedicine Encounter - Telemedicine Encounter Telemedicine Encounter: The entirety of this encounter was performed via Telemedicine"
[2023-05-04] MEDS ORDERED: Sodium Chloride 0.9% 1000 ML 1,000 ML ONE (05:00)
[2023-05-04] MEDS: Sodium Chloride 0.9% 1000 ML 1,000 ML IV SCH ×2 (05:01→13:33)
--- NOTE | 2023-05-04 05:06 | PCM.NOTE ---
Date and Time: 05/04/23 0504 Subjective Assessment: is a 77 year old female who presents with a syncopal episode and facial trauma after waking up at 530 this morning when she thought she heard a noise (she thought she heard her coughing). She then had loss of consciousness and hit her face on floor. The patient does state that she has had previous syncopal episodes over the past several years (the last episode was a couple of years ago) which were positional and attributed to orthostasis and vasovagal events. The patient had pain in her right cheek. She denies any pain elsewhere on her body. She has not had any subsequent new/acute vision changes, dizziness, or chest pain. She denies any new numbness/weakness. The patient does state that she has had a 30 pound weight loss which was initially intentional, with a single dose of Ozempic being administered in December, but subsequently unintentional; she endorses profound postprandial nausea which has been persistent. In fact, she continues to eat less in terms of portions, but furthermore she only eats one meal daily. The patient also has recently been treated for a bronchitis about a week ago. In the ED, the patient was found to have a non-displaced/non-depressed right maxillary fracture with telephone consultation with Plastic Surgery semiconductor engineer (Dr. Swenson), and the recommendation was for outpatient follow up. 05/04: Met with patient bedside. Endorses mild pain/tenderness to right cheek. Patient received IV potassium for hyponatremia on admission which is now corrected. Patient states that she has not been eating or drinking well since around December and has continued nausea after meals. Orthostatic vitals are positive. Patient states that she has had several similar syncopal episodes over the past few years. She has been evaluated previously and was told the episodes were due to vasovagal events. Discussed normal imaging of her brain. She does have a nondepressed fracture anterior wall right maxillary sinus which she will follow up with Dr. Swenson OP. Carotid US showing Worsening minimal/mild right carotid arteriosclerotic plaquing as detailed. Grossly stable minimal plaquing left carotid circulation. Velocity measurements and ratios negative for hemodynamically significant flow stenosis. Will consult cardiology and neurology for further evaluation. Denies fever,cough, sob, cp, abdominal pain, PARKER, dizziness, N/V/D. Echo has been obtained and pending. - Review of Systems Constitutional: No Symptoms Eyes: No Symptoms Ears, Nose, & Throat: No Symptoms Respiratory: Short Of Breath Cardiac: No Symptoms Abdominal/Gastrointestinal: Nausea Genitourinary Symptoms: No Symptoms Musculoskeletal: No Symptoms Skin: No Symptoms Neurological: No Symptoms Psychological: No Symptoms Objective Exam General Appearance: no apparent distress Neurologic Exam: alert, oriented x 3, cooperative Skin Exam: laceration (right cheek/eye) Eye Exam: PERRL Ears, Nose, Throat Exam: normal ENT inspection Respiratory Exam: normal breath sounds, lungs clear Cardiovascular Exam: regular rate/rhythm, normal heart sounds Gastrointestinal/Abdomen Exam: soft, normal bowel sounds Extremity Exam: normal inspection Back Exam: normal inspection OBJECTIVE DATA Vital Signs: Vital Signs - 24 hr Temp Pulse Resp BP BP Pulse Ox 05/04/23 03:53 98.6 F 71 16 133/70 95 05/03/23 23:58 98.2 F 97 H 20 108/52 95 05/03/23 20:58 99.0 F 89 18 110/54 98 05/03/23 20:10 96 H 20 99/56 96 05/03/23 20:00 99 H 28 H 84/56 97 05/03/23 19:45 98 H 24 110/64 97 05/03/23 19:36 98 05/03/23 19:31 95 H 20 108/62 99 05/03/23 19:15 102 H 17 113/64 99 05/03/23 19:00 104 H 17 114/57 99 05/03/23 18:45 110 H 23 146/73 99 05/03/23 18:31 113 H 21 127/72 98 05/03/23 18:15 107 H 23 83/48 99 05/03/23 18:06 89 15 103/59 96 05/03/23 16:15 110/64 05/03/23 16:00 96 H 26 H 109/58 95 05/03/23 15:45 94 H 19 99/53 97 05/03/23 15:30 90 15 105/57 97 05/03/23 15:15 92 H 19 99/55 98 05/03/23 15:00 91 H 14 101/60 98 05/03/23 14:45 94 H 15 101/51 96 05/03/23 14:40 90 15 101/51 94 L 05/03/23 14:06 95 05/03/23 13:30 90 18 121/47 95 05/03/23 13:15 86 17 99/60 93 L 05/03/23 13:00 85 23 93/51 99 05/03/23 12:45 84 18 99/52 99 05/03/23 12:40 98.6 F 95 H 22 95/67 99 05/03/23 12:39 89 25 H 95/67 98 Pain Assessment - Last Documented Pain Intensity 3 Intake and Output: Intake & Output 05/01/23 05/02/23 05/03/23 05/04/23 11:59 11:59 11:59 11:59 Intake Total 888 Output Total 500 Balance 388 Weight 78.925 kg Lab Results: Lab Results-Last 24 Hours 05/03/23 05/03/23 05/03/23 Range/Units 13:35 13:35 13:35 WBC 15.0 H (4.0-10.5) x10^3/uL RBC 3.76 L (4.1-5.4) x10^6/uL Hgb 10.5 L (12.0-16.0) g/dL Hct 32.8 L (35-47) % MCV 87.2 (78-100) fL MCH 27.9 (26-32) pg MCHC 32.0 (32-36) g/dL RDW 16.3 H (11.5-14.0) % Plt Count 524 H (150-450) x10^3/uL MPV 11.1 H (7.5-11.0) fL Gran % 66.4 H (36.0-66.0) % Immature Gran % (Auto) 2.3 H (0.00-0.4) % Nucleat RBC Rel Count 0.0 (0.00-0.1) % Eos # (Auto) 0.04 (0-0.5) x10^3/uL Immature Gran # (Auto) 0.35 H (0.00-0.03) x10^3u/L Absolute Lymphs (auto) 3.06 (1.0-4.6) x10^3/uL Absolute Monos (auto) 1.58 H (0.0-1.3) x10^3/uL Absolute Nucleated RBC 0.00 (0.00-0.01) x10^3u/L Lymphocytes % 20.4 L (24.0-44.0) % Monocytes % 10.5 (0.0-12.0) % Eosinophils % 0.3 (0.00-5.0) % Basophils % 0.1 (0.0-0.4) % Absolute Granulocytes 9.96 H (1.4-6.9) x10^3/uL Basophils # 0.02 (0-0.4) x10^3/uL Sodium 131 L (137-145) mmol/L Potassium 3.2 L (3.5-5.1) mmol/L Chloride 100 (98-107) mmol/L Carbon Dioxide 21 L (22-30) mmol/L Anion Gap 13.5 (5-15) MEQ/L BUN 35 H (7-17) mg/dL Creatinine 1.29 H (0.52-1.04) mg/dL Estimated GFR 43.3 ML/MIN Glucose 129 H (74-106) mg/dL POC Glucometer (74 to 106) mg/dL Calcium 9.1 (8.4-10.2) mg/dL Total Bilirubin 1.30 (0.2-1.3) mg/dL AST 27 (14-36) U/L ALT 16 (0-35) U/L Alkaline Phosphatase 67 (38-126) U/L Troponin I < 0.012 (0.000-0.034) ng/mL Serum Total Protein 6.9 (6.3-8.2) g/dL Albumin 3.5 (3.5-5.0) g/dL Urine Color (Yellow) Urine Appearance (Clear) Urine pH (4.6-8.0) Ur Specific [place] (1.005-1.030) Urine Protein (Negative) Urine Glucose (UA) (Negative) mg/dL Urine Ketones (Negative) Urine Blood (Negative) Urine Nitrite (Negative) Urine Bilirubin (Negative) Urine Urobilinogen (0.2) mg/dL Ur Leukocyte Esterase (Negative) U Hyaline Cast (Auto) (0-2) /LPF Urine Microscopic RBC (0-5) /HPF Urine Microscopic WBC (0-5) /HPF Ur Epithelial Cells (None Seen) /HPF Urine Bacteria (None Seen) /HPF Urine Culture Reflexed (NO) Influenza Type A Ag (NEGATIVE) Influenza Type B Ag (NEGATIVE) RSV (PCR) (NEGATIVE) SARS-CoV-2 (PCR) (NEGATIVE) Slides for Path Review YES 05/03/23 05/03/23 05/03/23 Range/Units 15:11 17:00 20:53 WBC (4.0-10.5) x10^3/uL RBC (4.1-5.4) x10^6/uL Hgb (12.0-16.0) g/dL Hct (35-47) % MCV (78-100) fL MCH (26-32) pg MCHC (32-36) g/dL RDW (11.5-14.0) % Plt Count (150-450) x10^3/uL MPV (7.5-11.0) fL Gran % (36.0-66.0) % Immature Gran % (Auto) (0.00-0.4) % Nucleat RBC Rel Count (0.00-0.1) % Eos # (Auto) (0-0.5) x10^3/uL Immature Gran # (Auto) (0.00-0.03) x10^3u/L Absolute Lymphs (auto) (1.0-4.6) x10^3/uL Absolute Monos (auto) (0.0-1.3) x10^3/uL Absolute Nucleated RBC (0.00-0.01) x10^3u/L Lymphocytes % (24.0-44.0) % Monocytes % (0.0-12.0) % Eosinophils % (0.00-5.0) % Basophils % (0.0-0.4) % Absolute Granulocytes (1.4-6.9) x10^3/uL Basophils # (0-0.4) x10^3/uL Sodium (137-145) mmol/L Potassium (3.5-5.1) mmol/L Chloride (98-107) mmol/L Carbon Dioxide (22-30) mmol/L Anion Gap (5-15) MEQ/L BUN (7-17) mg/dL Creatinine (0.52-1.04) mg/dL Estimated GFR ML/MIN Glucose (74-106) mg/dL POC Glucometer 109 H (74 to 106) mg/dL Calcium (8.4-10.2) mg/dL Total Bilirubin (0.2-1.3) mg/dL AST (14-36) U/L ALT (0-35) U/L Alkaline Phosphatase (38-126) U/L Troponin I < 0.012 (0.000-0.034) ng/mL Serum Total Protein (6.3-8.2) g/dL Albumin (3.5-5.0) g/dL Urine Color Yellow (Yellow) Urine Appearance Clear (Clear) Urine pH 5.5 (4.6-8.0) Ur Specific [place] 1.010 (1.005-1.030) Urine Protein Negative (Negative) Urine Glucose (UA) Negative (Negative) mg/dL Urine Ketones Trace A (Negative) Urine Blood Negative (Negative) Urine Nitrite Negative (Negative) Urine Bilirubin Negative (Negative) Urine Urobilinogen 0.2 (0.2) mg/dL Ur Leukocyte Esterase Trace A (Negative) U Hyaline Cast (Auto) NONE SEEN (0-2) /LPF Urine Microscopic RBC 0-2 (0-5) /HPF Urine Microscopic WBC 6-10 A (0-5) /HPF Ur Epithelial Cells None Seen (None Seen) /HPF Urine Bacteria None Seen (None Seen) /HPF Urine Culture Reflexed NO (NO) Influenza Type A Ag (NEGATIVE) Influenza Type B Ag (NEGATIVE) RSV (PCR) (NEGATIVE) SARS-CoV-2 (PCR) (NEGATIVE) Slides for Path Review 05/03/23 05/03/23 Range/Units 20:56 Unknown WBC (4.0-10.5) x10^3/uL RBC (4.1-5.4) x10^6/uL Hgb (12.0-16.0) g/dL Hct (35-47) % MCV (78-100) fL MCH (26-32) pg MCHC (32-36) g/dL RDW (11.5-14.0) % Plt Count (150-450) x10^3/uL MPV (7.5-11.0) fL Gran % (36.0-66.0) % Immature Gran % (Auto) (0.00-0.4) % Nucleat RBC Rel Count (0.00-0.1) % Eos # (Auto) (0-0.5) x10^3/uL Immature Gran # (Auto) (0.00-0.03) x10^3u/L Absolute Lymphs (auto) (1.0-4.6) x10^3/uL Absolute Monos (auto) (0.0-1.3) x10^3/uL Absolute Nucleated RBC (0.00-0.01) x10^3u/L Lymphocytes % (24.0-44.0) % Monocytes % (0.0-12.0) % Eosinophils % (0.00-5.0) % Basophils % (0.0-0.4) % Absolute Granulocytes (1.4-6.9) x10^3/uL Basophils # (0-0.4) x10^3/uL Sodium (137-145) mmol/L Potassium (3.5-5.1) mmol/L Chloride (98-107) mmol/L Carbon Dioxide (22-30) mmol/L Anion Gap (5-15) MEQ/L BUN (7-17) mg/dL Creatinine (0.52-1.04) mg/dL Estimated GFR ML/MIN Glucose (74-106) mg/dL POC Glucometer (74 to 106) mg/dL Calcium (8.4-10.2) mg/dL Total Bilirubin (0.2-1.3) mg/dL AST (14-36) U/L ALT (0-35) U/L Alkaline Phosphatase (38-126) U/L Troponin I < 0.012 (0.000-0.034) ng/mL Serum Total Protein (6.3-8.2) g/dL Albumin (3.5-5.0) g/dL Urine Color (Yellow) Urine Appearance (Clear) Urine pH (4.6-8.0) Ur Specific [place] (1.005-1.030) Urine Protein (Negative) Urine Glucose (UA) (Negative) mg/dL Urine Ketones (Negative) Urine Blood (Negative) Urine Nitrite (Negative) Urine Bilirubin (Negative) Urine Urobilinogen (0.2) mg/dL Ur Leukocyte Esterase (Negative) U Hyaline Cast (Auto) (0-2) /LPF Urine Microscopic RBC (0-5) /HPF Urine Microscopic WBC (0-5) /HPF Ur Epithelial Cells (None Seen) /HPF Urine Bacteria (None Seen) /HPF Urine Culture Reflexed (NO) Influenza Type A Ag NEGATIVE (NEGATIVE) Influenza Type B Ag NEGATIVE (NEGATIVE) RSV (PCR) NEGATIVE (NEGATIVE) SARS-CoV-2 (PCR) NEGATIVE (NEGATIVE) Slides for Path Review Radiology Exams: Radiology Procedures Category Date Time Status CAROTID BILATERAL [US] Routine Exams 05/03/23 21:45 Ordered CHEST 1 VIEW (PORTABLE) Stat Exams 05/03/23 15:23 Completed ECHO W/2D AND DOPPLER [US] Routine Exams 05/03/23 21:45 Ordered FACIAL BONES WO CONTRAST [CT] Stat Exams 05/03/23 15:57 Completed HEAD WITHOUT CONTRAST [CT] Stat Exams 05/03/23 12:56 Completed Multi-Disciplinary Progress Notes: Multi-Disciplinary Progress Notes 05/03/23 23:32 Respiratory Note by Yesenia Martell Pt reports no home resp medications, no home O2 and no home PAP use. Pt is currently on room air, SpO2 within normal limits. Initialized on 05/03/23 23:32 - END OF NOTE Assessment/Plan (1) Syncope and collapse Current Visit: No Status: Acute Assessment & Plan: Possibly orthostatic with syncope precipitated after getting up from supine position. Serial troponins on tele. ECHO and carotid US in AM. IV fluids. Check orthostatics in AM. Possible component of dehydration. Also the patient being on an oral hypoglycemic agent and only having one meal daily is concerning for potential iatrogenic hypglycemia. Follow sugars. 05/04: -CT head negative -Carotid US with worsening minimal/mild right carotid arteriosclerotic plaquing as detailed. Grossly stable minimal plaquing left carotid circulation. Velocity measurements and ratios negative for hemodynamically significant flow stenosis. -Cardiology/neurology consulted appreciate recs -Tele -TSH wnl -Orthostatic vitals positive, consider midodrine pending cardiology/neurology recs -Echo pending -PT/OT Code(s): R55 - SYNCOPE AND COLLAPSE (2) Hypokalemia Current Visit: Yes Status: Acute Assessment & Plan: Replete. Check mag. 05/04: -Resolved, will continue to monitor Code(s): E87.6 - HYPOKALEMIA (3) Maxillary sinus fracture Current Visit: Yes Status: Acute Assessment & Plan: Can follow up with Dr. Swenson as outpatient. Requested ST eval to determine if there needs to be dietary consistency changes based on swallowing pattern. Analgesia with Tylenol for now (patient has a codeine intolerance with that medication causing an "upset stomach"). 05/04: -No changes to diet per ST eval Code(s): S02.401A - MAXILLARY FRACTURE, UNSPECIFIED SIDE, INIT (4) UTI (urinary tract infection) Current Visit: Yes Status: Acute Assessment & Plan: Antibiotics. Follow culture. Probiotic. Code(s): N39.0 - URINARY TRACT INFECTION, SITE NOT SPECIFIED (5) Nausea Current Visit: Yes Status: Acute Assessment & Plan: Postprandial nausea and unintentional weight loss will require outpatient workup with PCP. Will check TSH. May need to consider gastric emptying study to rule out diabetic gastroparesis. Code(s): R11.0 - NAUSEA Code(s): R55 - SYNCOPE AND COLLAPSE (2) Hypokalemia Current Visit: Yes Status: Acute Code(s): E87.6 - HYPOKALEMIA (3) Maxillary sinus fracture Current Visit: Yes Status: Acute Code(s): S02.401A - MAXILLARY FRACTURE, UNSPECIFIED SIDE, INIT (4) Nausea Current Visit: Yes Status: Acute Code(s): R11.0 - NAUSEA (5) UTI (urinary tract infection) Current Visit: Yes Status: Acute Code(s): N39.0 - URINARY TRACT INFECTION, SITE NOT SPECIFIED
[2023-05-04 05:09] LABS: Absolute Neutrophil Ct (ANC) 6.56 x10^3/uL (1.4-6.9); BASOPHIL % 0.2 % (0.0-0.4); Basophil (Absolute #) 0.02 x10^3/uL (0-0.4); Eosinophil % 0.6 % (0.00-5.0); Eosinophil (Absolute #) 0.07 x10^3/uL (0-0.5); Hematocrit 29.5 % (35-47); Hemoglobin 9.3 g/dL (12.0-16.0); IMMATURE GRAN # 0.31 x10^3u/L (0.00-0.03); IMMATURE GRAN % 2.9 % (0.00-0.4); Lymphocyte (Absolute #) 2.48 x10^3/uL (1.0-4.6); Mean Cell Volume 87.8 fL (78-100); Mean Corpuscular Hemoglobin 27.7 pg (26-32); Mean Corpuscular Hgb Concent. 31.5 g/dL (32-36); Mean Platelet Volume 10.4 fL (7.5-11.0); Monocyte (Absolute #) 1.33 x10^3/uL (0.0-1.3); Monocytes % 12.3 % (0.0-12.0); Platelet Count 428 x10^3/uL (150-450); Red Blood Count 3.36 x10^6/uL (4.1-5.4); Red Cell Distribution Width 16.4 % (11.5-14.0); White Blood Count 10.8 x10^3/uL (4.0-10.5)
[2023-05-04 05:24] LABS: ANION GAP 7.7 MEQ/L (5-15); Calcium 8.8 mg/dL (8.4-10.2); Creatinine 1 1.25 mg/dL (0.52-1.04); MAGNESIUM 1.9 mg/dL (1.6-2.3)
[2023-05-04] MEDS: POTASSIUM CHLORIDE 20 mEq IN WATER 100ML 20 MEQ/100 ML BAG IV SCH ×2 (05:48→07:53)
[2023-05-04] MEDS ORDERED: MEDICATION INTERVENTION MC SCH ×2 (07:15)
[2023-05-04] MEDS: COSOPT OPHTHALMIC 10 ML OP SCH ×3 (07:48→21:33)
[2023-05-04] MEDS: Pepcid 20 MG PO SCH ×2 (09:09→21:32)
[2023-05-04] MEDS: Lotensin PO SCH (09:09)
[2023-05-04] MEDS: Acidophilus TABLET PO SCH (09:09)
[2023-05-04] MEDS: ECOTRIN 81 MG PO SCH (09:09)
[2023-05-04] MEDS: ZOCOR 20MG PO SCH (09:10)
[2023-05-04] MEDS: Klor Con PO SCH (09:10)
[2023-05-04] MEDS: hydroDIURIL 25 MG PO SCH (09:10)
[2023-05-04] MEDS: Actos 30 MG PO SCH ×2 (09:11→17:33)
[2023-05-04] MEDS: Vitamin E 400 UNIT SOFTGEL PO SCH (09:11)
[2023-05-04] MEDS: Glucophage 850 MG PO SCH ×2 (09:11→17:33)
[2023-05-04] MEDS: HEPARIN 5000 UNITS/0.5 ML (HIGH RISK MED) SQ SCH ×2 (09:12→21:31)
[2023-05-04] MEDS ORDERED: DESYREL 50 MG PO SCH (10:00)
[2023-05-04] MEDS ORDERED: [UNRECOGNIZED DRUG - OTHER] PO SCH (10:00)
[2023-05-04] MEDS ORDERED: LIPITOR 40MG PO SCH (10:00)
[2023-05-04] MEDS ORDERED: BENAZEPRIL PO SCH (10:00)
[2023-05-04] MEDS ORDERED: HYDROCHLOROTHIAZIDE PO SCH (10:00)
--- NOTE | 2023-05-04 12:16 | XRAY ---
Indication: Syncope. Two-dimensional sonogram and color Doppler imaging of the carotid arteries of the neck performed. Comparison: August 10, 2021 Examination of the right carotid circulation again demonstrates minimal heterogenous plaquing in the common carotid artery and carotid bulb. Origin/proximal internal carotid artery now demonstrates mild calcified plaquing. Widely patent external carotid artery. PSV of the CCA is 89 cm/s. PSV of the ICA is 96 cm/s. ICA/CCA ratio is 1.1. Normal antegrade vertebral artery flow. Examination of the left carotid circulation again demonstrates minimal calcified plaquing in the common carotid artery and carotid bulb. Widely patent internal carotid and external carotid arteries. PSV of the CCA is 46 cm/s. PSV of the ICA is 102 cm/s. ICA/CCA ratio is now 2.2, elevated due to slow PSV in CCA. Normal antegrade vertebral artery flow. Impression: Worsening minimal/mild right carotid arteriosclerotic plaquing as detailed. Grossly stable minimal plaquing left carotid circulation. Velocity measurements and ratios negative for hemodynamically significant flow stenosis. CTA may yield further information if there remains clinical concern.
[2023-05-04] MEDS: PATIENT OWN MEDICATION OP SCH ×2 (21:32→21:33)
[2023-05-04] MEDS: DESYREL 50 MG PO SCH (21:32)
[2023-05-05 05:01] LABS: Absolute Neutrophil Ct (ANC) 5.57 x10^3/uL (1.4-6.9); BASOPHIL % 0.2 % (0.0-0.4); Basophil (Absolute #) 0.02 x10^3/uL (0-0.4); Eosinophil % 1.1 % (0.00-5.0); Eosinophil (Absolute #) 0.11 x10^3/uL (0-0.5); Hematocrit 29.4 % (35-47); Hemoglobin 8.7 g/dL (12.0-16.0); IMMATURE GRAN # 0.34 x10^3u/L (0.00-0.03); IMMATURE GRAN % 3.4 % (0.00-0.4); Lymphocyte (Absolute #) 2.64 x10^3/uL (1.0-4.6); Lymphocytes % 26.3 % (24.0-44.0); Mean Cell Volume 91.9 fL (78-100); Mean Corpuscular Hemoglobin 27.2 pg (26-32); Mean Corpuscular Hgb Concent. 29.6 g/dL (32-36); Mean Platelet Volume 10.5 fL (7.5-11.0); Monocyte (Absolute #) 1.36 x10^3/uL (0.0-1.3); Monocytes % 13.5 % (0.0-12.0); Neutrophil % 55.5 % (36.0-66.0); Platelet Count 374 x10^3/uL (150-450); Red Cell Distribution Width 16.9 % (11.5-14.0)
--- NOTE | 2023-05-05 05:07 | PCM.NOTE ---
Date and Time: 05/05/23 0506 Subjective Assessment: is a 77 year old female who presents with a syncopal episode and facial trauma after waking up at 530 this morning when she thought she heard a noise (she thought she heard her coughing). She then had loss of consciousness and hit her face on floor. The patient does state that she has had previous syncopal episodes over the past several years (the last episode was a couple of years ago) which were positional and attributed to orthostasis and vasovagal events. The patient had pain in her right cheek. She denies any pain elsewhere on her body. She has not had any subsequent new/acute vision changes, dizziness, or chest pain. She denies any new numbness/weakness. The patient does state that she has had a 30 pound weight loss which was initially intentional, with a single dose of Ozempic being administered in December, but subsequently unintentional; she endorses profound postprandial nausea which has been persistent. In fact, she continues to eat less in terms of portions, but furthermore she only eats one meal daily. The patient also has recently been treated for a bronchitis about a week ago. In the ED, the patient was found to have a non-displaced/non-depressed right maxillary fracture with telephone consultation with Plastic Surgery monogram and letter paster (Dr. Swenson), and the recommendation was for outpatient follow up. 05/04: Met with patient bedside. Endorses mild pain/tenderness to right cheek. Patient received IV potassium for hyponatremia on admission which is now corrected. Patient states that she has not been eating or drinking well since around December and has continued nausea after meals. Orthostatic vitals are positive. Patient states that she has had several similar syncopal episodes over the past few years. She has been evaluated previously and was told the episodes were due to vasovagal events. Discussed normal imaging of her brain. She does have a nondepressed fracture anterior wall right maxillary sinus which she will follow up with Dr. Swenson OP. Carotid US showing Worsening minimal/mild right carotid arteriosclerotic plaquing as detailed. Grossly stable minimal plaquing left carotid circulation. Velocity measurements and ratios negative for hemodynamically significant flow stenosis. Will consult cardiology and neurology for further evaluation. Denies fever,cough, sob, cp, abdominal pain, PARKER, dizziness, N/V/D. Echo has been obtained and pending. 05/05: Met with patient bedside. Feeling better today. No further episodes of di zziness/syncope. Anxious to get home to care for her with AD. Tearful during interview. Neurology has evaluated patient and feels this is related to orthostasis. We will start a regimen of midodrine today. Cardiology has evaluated patient with recs to reduce benazepril/hctz in half, event monitor for 14 days s/p dc, follow up with Jeanie in 3 weeks. Most likely discharge in the morning. - Review of Systems Constitutional: No Symptoms Eyes: No Symptoms Ears, Nose, & Throat: No Symptoms Respiratory: No Symptoms Cardiac: No Symptoms Abdominal/Gastrointestinal: No Symptoms Genitourinary Symptoms: No Symptoms Musculoskeletal: No Symptoms Skin: No Symptoms Neurological: No Symptoms Psychological: Anxiety Endocrine: No Symptoms Hematologic/Lymphatic: No Symptoms Objective Exam General Appearance: no apparent distress Neurologic Exam: alert, oriented x 3, cooperative Skin Exam: other (Right face contusion) Eye Exam: PERRL Ears, Nose, Throat Exam: normal ENT inspection Neck Exam: normal inspection Lymphatic Exam: adenopathy Respiratory Exam: normal breath sounds, lungs clear Cardiovascular Exam: regular rate/rhythm, normal heart sounds Gastrointestinal/Abdomen Exam: soft, normal bowel sounds Extremity Exam: normal inspection Back Exam: normal inspection OBJECTIVE DATA Vital Signs: Vital Signs - 24 hr Temp Pulse Resp BP Pulse Ox 05/05/23 04:00 99.5 F 79 17 111/54 98 05/04/23 23:46 99.2 F 93 H 17 102/52 96 05/04/23 19:56 99.1 F 97 H 18 108/54 97 05/04/23 16:00 97.6 F 93 H 16 105/54 92 L 05/04/23 11:58 97.8 F 84 16 117/56 94 L 05/04/23 06:56 98.1 F 80 16 110/55 96 Pain Assessment - Last Documented Pain Intensity 0 Intake and Output: Intake & Output 05/02/23 05/03/23 05/04/23 05/05/23 11:59 11:59 11:59 11:59 Intake Total 1368 3971 Output Total 500 1750 Balance 868 2221 Weight 78.925 kg Lab Results: Lab Results-Last 24 Hours 05/04/23 05/04/23 05/04/23 Range/Units 04:59 04:59 04:59 WBC 10.8 H (4.0-10.5) x10^3/uL RBC 3.36 L (4.1-5.4) x10^6/uL Hgb 9.3 L (12.0-16.0) g/dL Hct 29.5 L (35-47) % MCV 87.8 (78-100) fL MCH 27.7 (26-32) pg MCHC 31.5 L (32-36) g/dL RDW 16.4 H (11.5-14.0) % Plt Count 428 (150-450) x10^3/uL MPV 10.4 (7.5-11.0) fL Gran % 61.0 (36.0-66.0) % Immature Gran % (Auto) 2.9 H (0.00-0.4) % Nucleat RBC Rel Count 0.0 (0.00-0.1) % Eos # (Auto) 0.07 (0-0.5) x10^3/uL Immature Gran # (Auto) 0.31 H (0.00-0.03) x10^3u/L Absolute Lymphs (auto) 2.48 (1.0-4.6) x10^3/uL Absolute Monos (auto) 1.33 H (0.0-1.3) x10^3/uL Absolute Nucleated RBC 0.00 (0.00-0.01) x10^3u/L Lymphocytes % 23.0 L (24.0-44.0) % Monocytes % 12.3 H (0.0-12.0) % Eosinophils % 0.6 (0.00-5.0) % Basophils % 0.2 (0.0-0.4) % Absolute Granulocytes 6.56 (1.4-6.9) x10^3/uL Basophils # 0.02 (0-0.4) x10^3/uL Sodium 133 L (137-145) mmol/L Potassium 3.0 L* (3.5-5.1) mmol/L Chloride 106 (98-107) mmol/L Carbon Dioxide 23 (22-30) mmol/L Anion Gap 7.7 (5-15) MEQ/L BUN 25 H (7-17) mg/dL Creatinine 1.25 H (0.52-1.04) mg/dL Estimated GFR 45.0 ML/MIN Glucose 124 H (74-106) mg/dL POC Glucometer (74 to 106) mg/dL Hemoglobin A1c (4.5-6.0) % Calcium 8.8 (8.4-10.2) mg/dL Magnesium 1.9 (1.6-2.3) mg/dL TSH 3rd Generation 0.582 (0.47-4.68) mIU/L 05/04/23 05/04/23 05/04/23 Range/Units 05:31 07:18 11:42 WBC (4.0-10.5) x10^3/uL RBC (4.1-5.4) x10^6/uL Hgb (12.0-16.0) g/dL Hct (35-47) % MCV (78-100) fL MCH (26-32) pg MCHC (32-36) g/dL RDW (11.5-14.0) % Plt Count (150-450) x10^3/uL MPV (7.5-11.0) fL Gran % (36.0-66.0) % Immature Gran % (Auto) (0.00-0.4) % Nucleat RBC Rel Count (0.00-0.1) % Eos # (Auto) (0-0.5) x10^3/uL Immature Gran # (Auto) (0.00-0.03) x10^3u/L Absolute Lymphs (auto) (1.0-4.6) x10^3/uL Absolute Monos (auto) (0.0-1.3) x10^3/uL Absolute Nucleated RBC (0.00-0.01) x10^3u/L Lymphocytes % (24.0-44.0) % Monocytes % (0.0-12.0) % Eosinophils % (0.00-5.0) % Basophils % (0.0-0.4) % Absolute Granulocytes (1.4-6.9) x10^3/uL Basophils # (0-0.4) x10^3/uL Sodium (137-145) mmol/L Potassium (3.5-5.1) mmol/L Chloride (98-107) mmol/L Carbon Dioxide (22-30) mmol/L Anion Gap (5-15) MEQ/L BUN (7-17) mg/dL Creatinine (0.52-1.04) mg/dL Estimated GFR ML/MIN Glucose (74-106) mg/dL POC Glucometer 125 H 124 H (74 to 106) mg/dL Hemoglobin A1c (4.5-6.0) % Calcium (8.4-10.2) mg/dL Magnesium 1.9 (1.6-2.3) mg/dL TSH 3rd Generation (0.47-4.68) mIU/L 05/04/23 05/04/23 05/04/23 Range/Units 12:00 16:14 20:47 WBC (4.0-10.5) x10^3/uL RBC (4.1-5.4) x10^6/uL Hgb (12.0-16.0) g/dL Hct (35-47) % MCV (78-100) fL MCH (26-32) pg MCHC (32-36) g/dL RDW (11.5-14.0) % Plt Count (150-450) x10^3/uL MPV (7.5-11.0) fL Gran % (36.0-66.0) % Immature Gran % (Auto) (0.00-0.4) % Nucleat RBC Rel Count (0.00-0.1) % Eos # (Auto) (0-0.5) x10^3/uL Immature Gran # (Auto) (0.00-0.03) x10^3u/L Absolute Lymphs (auto) (1.0-4.6) x10^3/uL Absolute Monos (auto) (0.0-1.3) x10^3/uL Absolute Nucleated RBC (0.00-0.01) x10^3u/L Lymphocytes % (24.0-44.0) % Monocytes % (0.0-12.0) % Eosinophils % (0.00-5.0) % Basophils % (0.0-0.4) % Absolute Granulocytes (1.4-6.9) x10^3/uL Basophils # (0-0.4) x10^3/uL Sodium (137-145) mmol/L Potassium 4.1 D (3.5-5.1) mmol/L Chloride (98-107) mmol/L Carbon Dioxide (22-30) mmol/L Anion Gap (5-15) MEQ/L BUN (7-17) mg/dL Creatinine (0.52-1.04) mg/dL Estimated GFR ML/MIN Glucose (74-106) mg/dL POC Glucometer 109 H 127 H (74 to 106) mg/dL Hemoglobin A1c (4.5-6.0) % Calcium (8.4-10.2) mg/dL Magnesium (1.6-2.3) mg/dL TSH 3rd Generation (0.47-4.68) mIU/L 05/04/ Range/Units Unknown WBC (4.0-10.5) x10^3/uL RBC (4.1-5.4) x10^6/uL Hgb (12.0-16.0) g/dL Hct (35-47) % MCV (78-100) fL MCH (26-32) pg MCHC (32-36) g/dL RDW (11.5-14.0) % Plt Count (150-450) x10^3/uL MPV (7.5-11.0) fL Gran % (36.0-66.0) % Immature Gran % (Auto) (0.00-0.4) % Nucleat RBC Rel Count (0.00-0.1) % Eos # (Auto) (0-0.5) x10^3/uL Immature Gran # (Auto) (0.00-0.03) x10^3u/L Absolute Lymphs (auto) (1.0-4.6) x10^3/uL Absolute Monos (auto) (0.0-1.3) x10^3/uL Absolute Nucleated RBC (0.00-0.01) x10^3u/L Lymphocytes % (24.0-44.0) % Monocytes % (0.0-12.0) % Eosinophils % (0.00-5.0) % Basophils % (0.0-0.4) % Absolute Granulocytes (1.4-6.9) x10^3/uL Basophils # (0-0.4) x10^3/uL Sodium (137-145) mmol/L Potassium (3.5-5.1) mmol/L Chloride (98-107) mmol/L Carbon Dioxide (22-30) mmol/L Anion Gap (5-15) MEQ/L BUN (7-17) mg/dL Creatinine (0.52-1.04) mg/dL Estimated GFR ML/MIN Glucose (74-106) mg/dL POC Glucometer (74 to 106) mg/dL Hemoglobin A1c 6.11 H (4.5-6.0) % Calcium (8.4-10.2) mg/dL Magnesium (1.6-2.3) mg/dL TSH 3rd Generation (0.47-4.68) mIU/L Radiology Exams: Radiology Procedures Category Date Time Status CAROTID BILATERAL [US] Routine Exams 05/04/23 21:45 Completed CHEST 1 VIEW (PORTABLE) Stat Exams 05/03/23 15:23 Completed ECHO W/2D AND DOPPLER [US] Routine Exams 05/04/23 21:45 Taken FACIAL BONES WO CONTRAST [CT] Stat Exams 05/03/23 15:57 Completed HEAD WITHOUT CONTRAST [CT] Stat Exams 05/03/23 12:56 Completed Assessment/Plan (1) Syncope and collapse Current Visit: No Status: Acute Assessment & Plan: Possibly orthostatic with syncope precipitated after getting up from supine position. Serial troponins on tele. ECHO and carotid US in AM. IV fluids. Check orthostatics in AM. Possible component of dehydration. Also the patient being on an oral hypoglycemic agent and only having one meal daily is concerning for potential iatrogenic hypglycemia. Follow sugars. 05/04: -CT head negative -Carotid US with worsening minimal/mild right carotid arteriosclerotic plaquing as detailed. Grossly stable minimal plaquing left carotid circulation. Velocity measurements and ratios negative for hemodynamically significant flow stenosis. -Cardiology/neurology consulted appreciate recs -Tele -TSH wnl -Orthostatic vitals positive, consider midodrine pending cardiology/neurology recs -Echo pending -PT/OT 05/05: -Cards recommending benazepril/hctz to be cut in half and 14 day event monitor on dc -midodrine 5mg tid Code(s): R55 - SYNCOPE AND COLLAPSE (2) Hypokalemia Current Visit: Yes Status: Acute Assessment & Plan: Replete. Check mag. 05/04: -Resolved, will continue to monitor Code(s): E87.6 - HYPOKALEMIA (3) Maxillary sinus fracture Current Visit: Yes Status: Acute Assessment & Plan: Can follow up with Dr. Swenson as outpatient. Requested ST eval to determine if there needs to be dietary consistency changes based on swallowing pattern. Analgesia with Tylenol for now (patient has a codeine intolerance with that medication causing an "upset stomach"). 05/04: -No changes to diet per ST eval Code(s): S02.401A - MAXILLARY FRACTURE, UNSPECIFIED SIDE, INIT (4) UTI (urinary tract infection) Current Visit: Yes Status: Acute Assessment & Plan: Antibiotics. Follow culture. Probiotic. 05/05 -d/c abx no growth on culture Code(s): N39.0 - URINARY TRACT INFECTION, SITE NOT SPECIFIED (5) Nausea Current Visit: Yes Status: Acute Assessment & Plan: Postprandial nausea and unintentional weight loss will require outpatient workup with PCP. Will check TSH. May need to consider gastric emptying study to rule out diabetic gastroparesis. Code(s): R11.0 - NAUSEA Code(s): R55 - SYNCOPE AND COLLAPSE Code(s): R55 - SYNCOPE AND COLLAPSE (2) Hypokalemia Current Visit: Yes Status: Acute Code(s): E87.6 - HYPOKALEMIA (3) Maxillary sinus fracture Current Visit: Yes Status: Acute Code(s): S02.401A - MAXILLARY FRACTURE, UNSPECIFIED SIDE, INIT (4) Nausea Current Visit: Yes Status: Acute Code(s): R11.0 - NAUSEA (5) UTI (urinary tract infection) Current Visit: Yes Status: Acute Code(s): N39.0 - URINARY TRACT INFECTION, SITE NOT SPECIFIED
[2023-05-05 05:31] LABS: ALBUMIN 2.8 g/dL (3.5-5.0); ANION GAP 7.1 MEQ/L (5-15); BILIRUBIN,TOTAL 0.9 mg/dL (0.2-1.3); Calcium 9.1 mg/dL (8.4-10.2); Creatinine 1 1.14 mg/dL (0.52-1.04); EST GLOMERULAR FILTRATION RATE 50.2 ML/MIN; Potassium 3.6 mmol/L (3.5-5.1); Total Protein 5.9 g/dL (6.3-8.2)
[2023-05-05] MEDS: Sodium Chloride 0.9% 1000 ML 1,000 ML IV SCH ×3 (07:37→23:51)
[2023-05-05] MEDS: Lotensin PO SCH (09:00)
[2023-05-05] MEDS: ECOTRIN 81 MG PO SCH (09:01)
[2023-05-05] MEDS: hydroDIURIL 25 MG PO SCH (09:01)
[2023-05-05] MEDS: ZOCOR 20MG PO SCH (09:01)
[2023-05-05] MEDS: Pepcid 20 MG PO SCH ×2 (09:01→21:12)
[2023-05-05] MEDS: Klor Con PO SCH (09:01)
[2023-05-05] MEDS: Actos 30 MG PO SCH ×2 (09:01→17:34)
[2023-05-05] MEDS: Acidophilus TABLET PO SCH (09:02)
[2023-05-05] MEDS: Vitamin E 400 UNIT SOFTGEL PO SCH (09:02)
[2023-05-05] MEDS: HEPARIN 5000 UNITS/0.5 ML (HIGH RISK MED) SQ SCH ×2 (09:02→21:11)
[2023-05-05] MEDS: Glucophage 850 MG PO SCH ×2 (09:02→17:34)
[2023-05-05] MEDS: COSOPT OPHTHALMIC 10 ML OP SCH ×2 (09:16→21:14)
[2023-05-05] MEDS: PATIENT OWN MEDICATION OP SCH ×3 (09:17→21:14)
[2023-05-05] MEDS: PROAMATINE PO SCH ×2 (14:30→21:13)
[2023-05-05] MEDS ORDERED: Bactroban OINTMENT ONE (20:03)
[2023-05-05] MEDS ORDERED: LEVOFLOXACIN 750MG/150ML D5W 750 MG/150 ML BAG IV SCH (22:00)
[2023-05-05] MEDS: DESYREL 50 MG PO SCH (22:57)
[2023-05-06 05:00] LABS: Absolute Neutrophil Ct (ANC) 5.73 x10^3/uL (1.4-6.9); BASOPHIL % 0.4 % (0.0-0.4); Basophil (Absolute #) 0.04 x10^3/uL (0-0.4); Eosinophil % 2.2 % (0.00-5.0); Eosinophil (Absolute #) 0.23 x10^3/uL (0-0.5); Hematocrit 30.2 % (35-47); Hemoglobin 8.7 g/dL (12.0-16.0); IMMATURE GRAN # 0.31 x10^3u/L (0.00-0.03); IMMATURE GRAN % 2.9 % (0.00-0.4); Lymphocyte (Absolute #) 2.93 x10^3/uL (1.0-4.6); Lymphocytes % 27.9 % (24.0-44.0); Mean Cell Volume 98.1 fL (78-100); Mean Corpuscular Hemoglobin 28.2 pg (26-32); Mean Corpuscular Hgb Concent. 28.8 g/dL (32-36); Mean Platelet Volume 10.8 fL (7.5-11.0); Monocyte (Absolute #) 1.27 x10^3/uL (0.0-1.3); Monocytes % 12.1 % (0.0-12.0); Neutrophil % 54.5 % (36.0-66.0); Platelet Count 336 x10^3/uL (150-450); Red Blood Count 3.08 x10^6/uL (4.1-5.4); Red Cell Distribution Width 17.4 % (11.5-14.0); White Blood Count 10.5 x10^3/uL (4.0-10.5)
--- NOTE | 2023-05-06 05:10 | PCM.DS ---
Discharge Summary Date of Admission: 05/03/23 20:23 Date of Discharge: 05/06/23 Admitting Physician: ANANYA WALLIS MD Consults: Consults on Case 05/04/23 12:44 Consult Neurology ROUTINE 05/04/23 12:45 Consult Cardiology ROUTINE Primary Care Provider: MIGUEL,ZAN Allergies Allergies Penicillins Allergy (Severe, Verified 05/03/23 20:42) b/p drops severe, "deadly" codeine Allergy (Mild, Verified 01/03/23 11:39) stomach upset Hospital Summary - Hospital Course Hospital Course: is a 77 year old female who presents with a syncopal episode and facial trauma after waking up at 530 this morning when she thought she heard a noise (she thought she heard her coughing). She then had loss of consciousness and hit her face on floor. The patient does state that she has had previous syncopal episodes over the past several years (the last episode was a couple of years ago) which were positional and attributed to orthostasis and vasovagal events. The patient had pain in her right cheek. She denies any pain elsewhere on her body. She has not had any subsequent new/acute vision changes, dizziness, or chest pain. She denies any new numbness/weakness. The patient does state that she has had a 30 pound weight loss which was initially intentional, with a single dose of Ozempic being administered in December, but subsequently unintentional; she endorses profound postprandial nausea which has been persistent. In fact, she continues to eat less in terms of portions, but furthermore she only eats one meal daily. The patient also has recently been treated for a bronchitis about a week ago. In the ED, the patient was found to have a non-displaced/non-depressed right maxillary fracture with telephone consultation with Plastic Surgery regional sales manager (Dr. Swenson), and the recommendation was for outpatient follow up. Neurology has evaluated patient and feels this is related to orthostasis. We will start a regimen of midodrine today. Cardiology has evaluated patient with recs to reduce benazepril/hctz in half, event monitor for 14 days s/p dc, follow up with Jeanie in 3 weeks. Patient was thought initially to have UTI, but culture was negative. Discharge Note New Diagnosis: New Medications: midodrine/ benazepril/hctz dose chaged Follow Up: pcp/card/surgery Latest Assessment & Plan (1) Syncope and collapse Current Visit: No Status: Acute Assessment & Plan: Possibly orthostatic with syncope precipitated after getting up from supine position. Serial troponins on tele. ECHO and carotid US in AM. IV fluids. Check orthostatics in AM. Possible component of dehydration. Also the patient being on an oral hypoglycemic agent and only having one meal daily is concerning for potential iatrogenic hypglycemia. Follow sugars. 05/04: -CT head negative -Carotid US with worsening minimal/mild right carotid arteriosclerotic plaquing as detailed. Grossly stable minimal plaquing left carotid circulation. Velocity measurements and ratios negative for hemodynamically significant flow stenosis. -Cardiology/neurology consulted appreciate recs -Tele -TSH wnl -Orthostatic vitals positive, consider midodrine pending cardiology/neurology recs -Echo pending -PT/OT 05/05: -Cards recommending benazepril/hctz to be cut in half and 14 day event monitor on dc -midodrine 5mg tid Code(s): R55 - SYNCOPE AND COLLAPSE (2) Hypokalemia Current Visit: Yes Status: Acute Assessment & Plan: Replete. Check mag. 05/04: -Resolved, will continue to monitor Code(s): E87.6 - HYPOKALEMIA (3) Maxillary sinus fracture Current Visit: Yes Status: Acute Assessment & Plan: Can follow up with Dr. Swenson as outpatient. Requested ST eval to determine if there needs to be dietary consistency changes based on swallowing pattern. Analgesia with Tylenol for now (patient has a codeine intolerance with that medication causing an "upset stomach"). 05/04: -No changes to diet per ST eval Code(s): S02.401A - MAXILLARY FRACTURE, UNSPECIFIED SIDE, INIT (4) UTI (urinary tract infection) Current Visit: Yes Status: Acute Assessment & Plan: Antibiotics. Follow culture. Probiotic. 05/05 -d/c abx no growth on culture Code(s): N39.0 - URINARY TRACT INFECTION, SITE NOT SPECIFIED (5) Nausea Current Visit: Yes Status: Acute Assessment & Plan: Postprandial nausea and unintentional weight loss will require outpatient workup with PCP. Will check TSH. May need to consider gastric emptying study to rule out diabetic gastroparesis. Code(s): R11.0 - NAUSEA Code(s): R55 - SYNCOPE AND COLLAPSE Code(s): R55 - SYNCOPE AND COLLAPSE (2) Hypokalemia Current Visit: Yes Status: Acute Code(s): E87.6 - HYPOKALEMIA (3) Maxillary sinus fracture Current Visit: Yes Status: Acute Code(s): S02.401A - MAXILLARY FRACTURE, UNSPECIFIED SIDE, INIT (4) Nausea Current Visit: Yes Status: Acute Code(s): R11.0 - NAUSEA (5) UTI (urinary tract infection) Current Visit: Yes Status: Acute Code(s): N39.0 - URINARY TRACT INFECTION, SITE NOT SPECIFIED I spent 35 minutes [id number] with the patient on the day of discharge performing discharge exam, discussing hospital stay and discharge instructions with patient and caregivers, preparation of discharge records, prescriptions & referral forms and addressing any questions/concerns the patient had as documented above. - Vitals & Intake/Output Vital Signs: Vital Signs Temperature 97.9 F 05/06/23 04:00 Pulse Rate 69 05/06/23 04:00 Respiratory Rate 16 05/06/23 04:00 Blood Pressure 113/54 05/06/23 04:00 O2 Sat by Pulse Oximetry 96 05/06/23 04:00 Intake & Output: Intake & Output 05/03/23 05/04/23 05/05/23 05/06/23 11:59 11:59 11:59 11:59 Intake Total 1368 4091 1728 Output Total 500 2050 750 Balance 868 2041 978 Weight 78.925 kg - Lab Result Diagrams: 05/06/23 04:47 05/06/23 04:47 Lab Results-Last 24 Hrs: Lab Results-Last 24 Hours 05/05/23 05/05/23 05/05/23 Range/Units 04:46 04:46 06:33 WBC 10.0 (4.0-10.5) x10^3/uL RBC 3.20 L (4.1-5.4) x10^6/uL Hgb 8.7 L (12.0-16.0) g/dL Hct 29.4 L (35-47) % MCV 91.9 (78-100) fL MCH 27.2 (26-32) pg MCHC 29.6 L (32-36) g/dL RDW 16.9 H (11.5-14.0) % Plt Count 374 (150-450) x10^3/uL MPV 10.5 (7.5-11.0) fL Gran % 55.5 (36.0-66.0) % Immature Gran % (Auto) 3.4 H (0.00-0.4) % Nucleat RBC Rel Count 0.0 (0.00-0.1) % Eos # (Auto) 0.11 (0-0.5) x10^3/uL Immature Gran # (Auto) 0.34 H (0.00-0.03) x10^3u/L Absolute Lymphs (auto) 2.64 (1.0-4.6) x10^3/uL Absolute Monos (auto) 1.36 H (0.0-1.3) x10^3/uL Absolute Nucleated RBC 0.00 (0.00-0.01) x10^3u/L Lymphocytes % 26.3 (24.0-44.0) % Monocytes % 13.5 H (0.0-12.0) % Eosinophils % 1.1 (0.00-5.0) % Basophils % 0.2 (0.0-0.4) % Absolute Granulocytes 5.57 (1.4-6.9) x10^3/uL Basophils # 0.02 (0-0.4) x10^3/uL Sodium 136 L (137-145) mmol/L Potassium 3.6 (3.5-5.1) mmol/L Chloride 110 H (98-107) mmol/L Carbon Dioxide 22 (22-30) mmol/L Anion Gap 7.1 (5-15) MEQ/L BUN 19 H (7-17) mg/dL Creatinine 1.14 H (0.52-1.04) mg/dL Estimated GFR 50.2 ML/MIN Glucose 122 H (74-106) mg/dL POC Glucometer 121 H (74 to 106) mg/dL Calcium 9.1 (8.4-10.2) mg/dL Total Bilirubin 0.90 (0.2-1.3) mg/dL AST 18 (14-36) U/L ALT 12 (0-35) U/L Alkaline Phosphatase 68 (38-126) U/L Serum Total Protein 5.9 L (6.3-8.2) g/dL Albumin 2.8 L (3.5-5.0) g/dL 05/05/23 05/05/23 05/05/23 Range/Units 11:25 15:48 21:34 WBC (4.0-10.5) x10^3/uL RBC (4.1-5.4) x10^6/uL Hgb (12.0-16.0) g/dL Hct (35-47) % MCV (78-100) fL MCH (26-32) pg MCHC (32-36) g/dL RDW (11.5-14.0) % Plt Count (150-450) x10^3/uL MPV (7.5-11.0) fL Gran % (36.0-66.0) % Immature Gran % (Auto) (0.00-0.4) % Nucleat RBC Rel Count (0.00-0.1) % Eos # (Auto) (0-0.5) x10^3/uL Immature Gran # (Auto) (0.00-0.03) x10^3u/L Absolute Lymphs (auto) (1.0-4.6) x10^3/uL Absolute Monos (auto) (0.0-1.3) x10^3/uL Absolute Nucleated RBC (0.00-0.01) x10^3u/L Lymphocytes % (24.0-44.0) % Monocytes % (0.0-12.0) % Eosinophils % (0.00-5.0) % Basophils % (0.0-0.4) % Absolute Granulocytes (1.4-6.9) x10^3/uL Basophils # (0-0.4) x10^3/uL Sodium (137-145) mmol/L Potassium (3.5-5.1) mmol/L Chloride (98-107) mmol/L Carbon Dioxide (22-30) mmol/L Anion Gap (5-15) MEQ/L BUN (7-17) mg/dL Creatinine (0.52-1.04) mg/dL Estimated GFR ML/MIN Glucose (74-106) mg/dL POC Glucometer 110 H 110 H 111 H (74 to 106) mg/dL Calcium (8.4-10.2) mg/dL Total Bilirubin (0.2-1.3) mg/dL AST (14-36) U/L ALT (0-35) U/L Alkaline Phosphatase (38-126) U/L Serum Total Protein (6.3-8.2) g/dL Albumin (3.5-5.0) g/dL Micro Results-Entire Visit: Microbiology 05/04/23 10:08 Urine Culture - Preliminary Urine, Void NO GROWTH TO DATE Accuchecks Date 05/05/23 Date 05/05/23 Date 05/05/23 Date 05/05/23 Time 22:21 Time 16:01 Time 11:55 Time 06:53 - Radiology Exams Ordered Rad Exams-Entire Visit: Radiology Procedures Category Date Time Status CAROTID BILATERAL [US] Routine Exams 05/04/23 21:45 Completed ECHO W/2D AND DOPPLER [US] Routine Exams 05/04/23 21:45 Taken - Procedures and Test Procedures and Tests throughout Hospitalization: Therapy Orders & Screens 05/03/23 21:46 Speech Therapy Eval & Treat [ST Eval & Treat ( Order)] .as ordered Comment: Physician Instructions: Reason For Exam: Evaluate: Yes Treat: Yes Reason for Eval: maxillary fracture. Please assess dietary consistency needs. Diagnosis: Syncope, UTI 05/03/23 21:47 PT Eval & Treat ( Order) ONCE Reason for Eval:: syncope; assess fall risk Diagnosis: Syncope, UTI Discharge Exam General Appearance: no apparent distress, anxiety Neurologic Exam: alert, oriented x 3, cooperative Eye Exam: PERRL, other (Right facial laceration) Ears, Nose, Throat Exam: normal ENT inspection Neck Exam: normal inspection Respiratory Exam: normal breath sounds, lungs clear Cardiovascular Exam: regular rate/rhythm, normal heart sounds Gastrointestinal/Abdomen Exam: soft, normal bowel sounds Pelvic Exam: deferred Rectal Exam: deferred Back Exam: normal inspection Extremity Exam: normal inspection Skin Exam: abrasion (Right face) Final Diagnosis/Problem List - Final Discharge Diagnosis/Problem (1) Maxillary sinus fracture Current Visit: Yes Status: Chronic Code(s): S02.401A - MAXILLARY FRACTURE, UNSPECIFIED SIDE, INIT (2) Orthostatic hypotension Current Visit: Yes Status: Chronic Code(s): I95.1 - ORTHOSTATIC HYPOTENSION (3) Syncope and collapse Current Visit: No Status: Resolved Code(s): R55 - SYNCOPE AND COLLAPSE (4) Hypokalemia Current Visit: Yes Status: Resolved Code(s): E87.6 - HYPOKALEMIA (5) Nausea Current Visit: Yes Status: Chronic Code(s): R11.0 - NAUSEA (6) UTI (urinary tract infection) Current Visit: Yes Status: Ruled-out Code(s): N39.0 - URINARY TRACT INFE CTION, SITE NOT SPECIFIED - Discharge Disposition: Home, Self-Care Condition: Stable Prescriptions: New hydroCHLOROthiazide [Hydrochlorothiazide] 6.25 mg PO DAILY 30 Days #15 tablet Benazepril HCl [Lotensin] 10 mg PO DAILY 30 Days #30 tablet Midodrine HCl [Proamatine] 5 mg PO TID 30 Days #90 tablet Continue Vitamin E 400 Units [Vitamin E 400 UNIT SOFTGEL] 400 unit PO DAILY Pioglitazone HCl/Metformin HCl [Actoplus Met 15 mg-850 mg Tab] 1 each PO BID Cyanocobalamin (Vitamin B-12) [Neuro B-12 Forte S] 1,000 mcg IJ UD Atorvastatin Calcium [Lipitor] 40 mg PO DAILY Aspirin EC 81 mg [Ecotrin 81 mg] 81 mg PO DAILY #0 Trazodone HCl 50 mg [Desyrel 50 mg] 50 mg PO HS Potassium Chloride 10 meq PO DAILY Latanoprostene Bunod [Vyzulta] 1 drp OP HS Dorzolamide HCl/Timolol Maleat [Dorzolamide-Timolol Eye Drops] 1 drp OP BID Carboxymethylcellulos/Glycerin [Refresh Optive Eye Drops] 5 ml OP BID Discontinued Benazepril/Hydrochlorothiazide [Benazepril-Hctz 20-12.5 mg Tab] 1 each PO DAILY Additional Instructions: IF YOU ARE INTERESTED IN [employer])- YOU CAN CONTACT THEM AT [phone] Follow up with: STEPHANIE BANEGAS [CONSULTING PHYSICIAN] - (with Adriane) ZAN RIVERA MD [Primary Care Provider] - ADRIANE BARRERA PA [NON-STAFF PHY W/O PRIVILEGES] - 05/25/23 3:45 pm (in [place] )
[2023-05-06 05:34] LABS: ANION GAP 8.1 MEQ/L (5-15); BILIRUBIN,TOTAL 0.9 mg/dL (0.2-1.3); Calcium 9.2 mg/dL (8.4-10.2); Creatinine 1 0.98 mg/dL (0.52-1.04); EST GLOMERULAR FILTRATION RATE 60.2 ML/MIN; Potassium 3.6 mmol/L (3.5-5.1); Total Protein 5.9 g/dL (6.3-8.2)
[2023-05-06 07:31] VITALS: BP 119/61; PULSE 81; RESP 17; TEMP 97.3; O2SAT 95
[2023-05-06 08:01] LABS: Slide Review 1 YES
[2023-05-06] MEDS: Actos 30 MG PO SCH (08:45)
[2023-05-06] MEDS: Glucophage 850 MG PO SCH (08:46)
[2023-05-06] MEDS: Vitamin E 400 UNIT SOFTGEL PO SCH (09:07)
[2023-05-06] MEDS: Acidophilus TABLET PO SCH (09:07)
[2023-05-06] MEDS: Pepcid 20 MG PO SCH (09:07)
[2023-05-06] MEDS: PROAMATINE PO SCH (09:08)
[2023-05-06] MEDS: ECOTRIN 81 MG PO SCH (09:08)
[2023-05-06] MEDS: Klor Con PO SCH (09:08)
[2023-05-06] MEDS: ZOCOR 20MG PO SCH (09:09)
[2023-05-06] MEDS: COSOPT OPHTHALMIC 10 ML OP SCH (09:16)
[2023-05-06] MEDS: PATIENT OWN MEDICATION OP SCH (09:17)
[2023-05-06] MEDS: HEPARIN 5000 UNITS/0.5 ML (HIGH RISK MED) SQ SCH (09:18)
[2023-05-06] MEDS ORDERED: Lotensin PO SCH (10:00)
[2023-05-06] MEDS ORDERED: hydroDIURIL 25 MG PO SCH (10:00)
[2023-05-06] MEDS ORDERED: Bactroban OINTMENT TP SCH (10:00)
--- NOTE | 2023-05-11 14:57 | ECHO ---
DATE OF PROCEDURE: 05/04/2023 CLINICAL INFORMATION: Syncope. The M-mode 2D, and Doppler echocardiogram including color flow Doppler shows the left ventricle is normal in size. The wall thickness is normal. The contractility is normal. The ejection fraction is estimated to be 55 to 60%. There is evidence of possible impaired left ventricular relaxation. The right ventricle appears to be mildly dilated. The contractility is normal. The left atrium is normal in size. The interatrial septum is intact. The right atrium is normal. The aortic valve opens well. There is no aortic regurgitation. The mitral valve is normal. There is mild tricuspid regurgitation. The right ventricular systolic pressure is calculated to be 43 mm of Mercury. The pulmonic valve is not well visualized. The aortic root is normal. There is no pericardial effusion present. IMPRESSION: 1) NORMAL CONTRACTILITY OF THE LEFT VENTRICLE. 2) POSSIBLE IMPAIRED LEFT VENTRICULAR RELAXATION. 3) MILD TRICUSPID REGURGITATION. 4) MODERATE PULMONARY HYPERTENSION.
[2023-05-22] MEDS ORDERED: Cyanocobalamin B-12 1000 MCG/ML IJ SCH (10:00)
== END 2023-05-06 10:50 | disposition home or self-care (01) ==
LOC: ED 12:21 → MED SURG 20:23
PROVIDERS: ADMIT Internal Medicine; ATTEND Internal Medicine
DX: R55 Syncope and collapse (principal); S02.40CA Maxillary fracture, right side, initial encounter for closed fracture; W19.XXXA Unspecified fall, initial encounter; N39.0 Urinary tract infection, site not specified; Z20.828 Contact with and (suspected) exposure to other viral communicable diseases; E87.1 Hypo-osmolality and hyponatremia; E87.6 Hypokalemia; Z79.899 Other long term (current) drug therapy; R11.0 Nausea
CPT/HCPCS: 0241U; 36000; 36415; 70450; 70486; 71045; 80048; 80053; 81001; 82947; 83036; 83735; 84132; 84443; 84484; 85025; 87086; 93005; 93041; 93246; 93268; 93306; 93880; 94760; 97161; 99285; G0378; Q3014; J1644; J1956; J3475; J3480; A9270-GY